=== PATIENT | female | born 1965 | race African-American/Black ===

== ENCOUNTER 2020-08-19 09:30 | Outpatient (RCR) | payer OTHER, SELFPAY ==
--- NOTE | 2020-07-31 13:51 | PTOPEVAL ---
Thank you for referring Phyllis Ferro to [facility].? The patient is scheduled to be seen for therapy? 2 x/week for 6-8 weeks. Please review, sign, date and return this plan of care ERNESTO. I agree with and certify that the following plan of care is medically necessary. Referring Physician Date Attending Provider: Ciaran Osullivan, Referring Provider: Ciaran Osullivan, Physical Therapy Evaluation Diagnosis MS and OA of knee Onset 03/07 Additional Evaluation Detail last exacerbation 12/06 She received 4 months of therapy until June 2019 at [facility] She she then received therapy at [facility] in Jan 2020, she stopped due to a fall. Jan 2019 was the last time she was able to negotiate steps. She received home health until 5 wks ago Current weight 355#. Subjective Information She has a ww, rollator and Query Text:As Reported By Patient/ scooter at home. Family She c/o weakness of left leg that limits her ability to walk or perform daily activities. Her ability to perform daily activities varies with weakness and pain. She reports 3 falls in the past 6 month. When she falls she scoots to the steps and pulls herself up. insulation worker 5hr/day--performs all cleaning, prep cooking and light cooking, assist with ADL's and runs errands. Previous Treatments Previous Treatments For This Problem yes, OP and home health Prior Level of Function Home Setting Home Type House Environmental Barriers Ramp,Railing, Bilateral,Stairs, Greater than 4 Living Situation Alone Support Available Hired Assistance,Physical Assist Available Mobility Assistive Devices (Used Last 3 Walker, Rollator,Walker, Months) Wheeled,Wheelchair, Scooter Pain Assessment Self Report Pain Assessment Knee(s) Reported Pain Level 5 Pain Description Aching,Sharp Pain Frequency Chronic,Continuous Lowest Pain Intensity 3 Greatest Pain Intensity 10 Pain Behaviors Anxious Lower Extremity Range of Motion General Lower Extremi
--- NOTE | 2020-07-31 14:51 | OTOPEVAL ---
OCCUPATIONAL THERAPY EVALUATION REPORT 07/31/20 Thank you for referring Phyllis Ferro [place] [facility] [place] The patient is scheduled to be seen for therapy? 1-2x/week for 2 weeks for 5 visits and the re-evaluation due to patient's insurance only authorizing 6 visits at a time. Please review, sign, date and return this plan of care ERNESTO. I agree with and certify that the following plan of care is medically necessary. Referring Physician Date Admitting Provider: Attending Provider: Ciaran Osullivan, Referring Provider: Ciaran Osullivan, *OT Outpatient Evaluation Start: 07/31/20 13:29 Freq: Status: Active Protocol: Document 07/31/20 13:25 JAYLON (Rec: 07/31/20 14:46 JAYLON [email or web address]) Therapy Assessment Status Assessment Status Assessment Status Evaluation Outpatient Past Medical History Past Medical History Source of Past Medical History Patient,Recalled from Previous Visit, Confirmed with Patient /Family Neurological History Hx Multiple Sclerosis Yes Cardiovascular History Hx Hypertension Yes Genitourinary History Hx Other Genitourinary Disorders Yes: incontinence of bladder Musculoskeletal History Hx Back Pain Yes Hx Other Musculoskeletal Disorders Yes: CTS Endocrine History Hx Other Endocrine Disorders Yes: obesity Psychosocial History Hx Anxiety Yes Hx Depression Yes Pain History Has Past Pain Affected Your Daily Life Yes Evaluation Information Problem Diagnosis MS Onset 02/2019 Subjective Information Patient reports that she was Query Text:As Reported By Patient/ receiving outpatient OT/PT Family Dec-Mar 2020, but stopped due to a fall. She was receiving home health OT/PT Apr-June 2020. States she has a HEP that she does about every other day. Depending on the day she will either use a cane, w/w, rollator, or scooter for her mobility. On a good day she uses a w/w and if she is feeling weak she will use the rollator or scooter. 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 Prior Level of Function Activity Level (Last 3 Months) Hand Dominance Right Activity of Daily Living Ability
--- NOTE | 2020-07-31 14:54 | OTOPEVAL ---
OCCUPATIONAL THERAPY INITIAL EVALUATION REPORT 07/31/20 Thank you for referring Phyllis Ferro to [facility].? The patient is scheduled to be seen for therapy? 2x/week for 6-8 weeks. Please review, sign, date and return this plan of care ERNESTO. I agree with and certify that the following plan of care is medically necessary. Referring Physician Date Admitting Provider: Attending Provider: Ciaran Osullivan, Referring Provider: Ciaran OsullivanMD *OT Outpatient Evaluation Start: 07/31/20 13:29 Freq: Status: Active Protocol: Document 07/31/20 13:25 JAYLON (Rec: 07/31/20 14:46 JAYLON [email or web address]) Therapy Assessment Status Assessment Status Assessment Status Evaluation Outpatient Past Medical History Past Medical History Source of Past Medical History Patient,Recalled from Previous Visit, Confirmed with Patient /Family Neurological History Hx Multiple Sclerosis Yes Cardiovascular History Hx Hypertension Yes Genitourinary History Hx Other Genitourinary Disorders Yes: incontinence of bladder Musculoskeletal History Hx Back Pain Yes Hx Other Musculoskeletal Disorders Yes: CTS Endocrine History Hx Other Endocrine Disorders Yes: obesity Psychosocial History Hx Anxiety Yes Hx Depression Yes Pain History Has Past Pain Affected Your Daily Life Yes Evaluation Information Problem Diagnosis MS Onset 02/2019 Subjective Information Patient reports that she was Query Text:As Reported By Patient/ receiving outpatient OT/PT Family Dec-Mar 2020, but stopped due to a fall. She was receiving home health OT/PT Apr-June 2020. States she has a HEP that she does about every other day. Depending on the day she will either use a cane, w/w, rollator, or scooter for her mobility. On a good day she uses a w/w and if she is feeling weak she will use the rollator or scooter. 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 Prior Level of Function Activity Level (Last 3 Months) Hand Dominance Right Activity of Daily Living Ability Needs Some Help Cooking Yes Fabiola
--- NOTE | 2020-08-08 13:26 | PCOTNOTE ---
Patient called and canceled Occupational Therapy treatment on 08/07 due to being in hospital.
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
--- NOTE | 2020-08-19 09:03 | PCPTNOTE ---
Patient did not show up for scheduled appointment this date. Called and left voicemail reminding Pt of missed appointment and informing her of upcoming appointment on 08/22/20 at 08:00. Will continue per POC.
--- NOTE | 2020-08-22 08:20 | PCPTNOTE ---
Patient called & cancelled scheduled appointment this date due to fell at MD office yesterday and is currently in the hospital. Did not reschedule re-eval this time.
--- NOTE | 2020-09-04 11:23 | PCPTNOTE ---
Admitting Provider: Attending Provider: Ciaran OsullivanMD Patient:Phyllis Ferro Date of :1965 Discharge Note Patient has not returned for any further treatments since 08/12/2020, therefore she will be discharged at this time. Patient?s initial visit was on 07/31/2020 12:30 and she was seen for 1 follow-up visit and 3 cancelled or no show visits. The goals have been not met due to limited attendance of therapy. Thank you for referring this patient to [facility]. Please review, sign, date and return this discharge summary ERNESTO. I have been updated about the patient's current status and I agree with discharge from the above service at this time. Referring Physician Date
--- NOTE | 2020-09-04 11:53 | PCOTNOTE ---
OCCUPATIONAL THERAPY DISCHARGE NOTE 09/04/20 Patient:Phyllis Ferro Date of :1965 Patient has not returned for any further treatments since 08/12/2020, therefore she will be discharged at this time. Patient?s initial visit was on 07/31/2020 12:30 and she was seen for 2 follow-up visits and 3 cancelled or no show visits. The goals have been not met due to limited attendance of therapy. Thank you for referring this patient to [facility]. Please review, sign, date and return this discharge summary ERNESTO. I have been updated about the patient's current status and I agree with discharge from the above service at this time. Referring Physician Date Referring Provider: Ciaran OsullivanMD
== END 2020-09-05 11:52 | disposition home or self-care (01) ==
LOC: ANHOT 09:30
PROVIDERS: PCP Family Medicine; Referring Provider Family Medicine; Visit Provider Family Medicine
DX: M17.0 Bilateral primary osteoarthritis of knee (principal)
CPT/HCPCS: 97110; 97113; 97163; 97166

== ENCOUNTER 2020-12-10 10:28 | Emergency (ER) | payer OTHER, SELFPAY ==
--- NOTE | ~2020-12-10 | US_ITS ---
EXAMINATION: US venous doppler [facility] DATE: 12/10/2020 11:30 INDICATION: Left lower limb pain TECHNIQUE: Grayscale ultrasound images without and with compression and Doppler ultrasound images of the left lower extremity veins were obtained. COMPARISON: None. FINDINGS: The visualized portions of left common femoral vein, profunda (deep) femoral vein, femoral vein, popl iteal vein, peroneal veins, posterior tibial veins, gastrocnemius vein and greater saphenous vein out flow are patent. IMPRESSION: 1. No deep venous thrombosis in the left lower limb. Reviewed, dictated and finalized at location B.
--- NOTE | ~2020-12-10 | XR_ITS ---
EXAMINATION: XR tibia fibula LT 2V EXAM DATE: 12/10/2020 11:13 INDICATION: No known recent injury provided at this time. Pain of the left leg. TECHNIQUE: Left tibia/fibula frontal and lateral projections obtained and reviewed. There is no prio r study for comparison. FINDINGS: Left tibial and fibular shafts unremarkable. There are no acute fractures or dislocations identified. There is no subcutaneous gas. The soft tissue is unremarkable. There are no radiopaqu e foreign bodies. There is moderate left knee, mild ankle primary osteoarthritis. IMPRESSION: Left knee, ankle osteoarthritis. Reviewed, dictated and finalized at location A.
[2020-12-10 10:30] VITALS: BP 135/65; PULSE 59; RESP 16; TEMP 37.3; O2SAT 100
--- NOTE | 2020-12-10 11:04 | ED.EXTPRO ---
HPI - Extremity Problem General Chief complaint: Extremity Problem,Nontraumatic Stated complaint: lower leg infection Time Seen by Provider: 12/10/20 10:30 Source: patient and RN notes reviewed Mode of arrival: EMS Limitations: no limitations History of Present Illness HPI Narrative: This is a 55 year old female with history of MS who presents for evaluation of reassessment of left leg DVT. Patient states she was diagnosed with a left leg DVT at [place] in October so she has been on lovenox. She states she had another US performed yesterday at her long-term because she was having left leg pain during physical therapy. She states she was unable to bear weight to her left lower leg yesterday during physical therapy due to pain. She was having pain to lower anterior leg and posterior leg. Most of her pain was located anteriorly. She denies fever, chills, nauesa, vomiting chest pain or sob. She denies calf pain today. Review of Systems Review of Systems: All systems reviewed & are unremarkable except as noted in HPI and below PMFSH Past Medical History Medical History (Updated 12/10/20 @ 13:52 by Ladonna Guardado MD) DVT (deep venous thrombosis) Hypertension Multiple sclerosis Surgical History Surgical History (Updated 12/10/20 @ 13:50 by Ladonna Guardado MD) H/O gastric bypass H/O inguinal hernia repair Social History Social History (Updated 12/10/20 @ 13:50 by Ladonna Guardado MD) Smoking status: Never smoker Exam Const: General: no acute distress and alert Nutritional Appearance: obese Orientation/consciousness: patient oriented x3 Eyes: EOM: EOMs intact bilaterally Resp: Effort & Inspection: normal respiratory effort and no retractions Auscultation: clear to auscultation bilaterally Cardio: Rate: regular rate Rhythm: regular rhythm Heart sounds: no murmurs Neuro: General: patient oriented x3 Extrem: Other: bilateral leg weakness, negative oswaldo's left leg, no calf tenderness; no erythema, no tenderness or induration Course Reevaluation(s) Reevaluation #1: I reviewed labs with patient and discussed her US was negative for DVt. Date: 12/10/20 Time: 13:51 Vital Signs Vital signs: Vital Signs Temperature 99.2 F 12/10/20 10:30 Pulse Rate 59 L 08/24/21 10:30 Respiratory Rate 16 12/10/20 10:30 Blood Pressure 135/65 12/10/20 10:30 Pulse Oximetry 100 12/10/20 10:30 Temperature 99.2 F 12/10/20 10:30 Pulse Rate 69 12/10/20 17:09 Respiratory Rate 16 12/10/20 17:09 Blood Pressure 122/83 12/10/20 17:09 Pulse Oximetry 96 12/10/20 17:09 MDM - Extremity (Nontraumatic) Lab Data Attestation: I reviewed the patient's lab results. Result diagrams: 12/10/20 13:19 12/10/20 12:55 Labs: Lab Results 12/10/20 12/10/20 12/10/20 Range/Units 12:55 12:55 13:19 WBC 5.8 (4.5-10.0) K/mm3 RBC 4.09 L (4.2-5.4) M/mm3 Hgb 12.3 (12.0-15.0) g/dL Hct 39.2 (37.0-47.0) % MCV 95.8 (80-100) fl MCH 30.1 (26-34) pg MCHC 31.4 L (32-36) g/dl RDW 14.9 H (11.5-14.5) % Plt Count 271 (150-375) k/mm3 MPV 10.9 H (7.4-10.4) fl Immature Gran % (Auto) 0.2 (0-0.5) % Neut % (Auto) 28.9 L (45.5-73.1) % Lymph % (Auto) 53.6 H (18.3-44.2) % Sandoval % (Auto) 9.0 H (2.6-8.5) % Eos % (Auto) 8.0 H (0-4.4) % Baso % (Auto) 0.3 (0.2-1.2) % Lymph # (Auto) 3.09 (0.9-3.2) K/mm3 Sandoval # (Auto) 0.5 (0.1-0.6) K/mm3 Eos # (Auto) 0.5 H (0-0.3) K/mm3 Baso # (Auto) 0.0 (0.0-0.1) K/mm3 Abs Immat Gran (auto) 0.01 (0.00-0.031) K/mm3 Absolute Neuts (auto) 1.7 (1.3-6.7) K/mm3 Absolute Nucleated RBC 0.0 (0.0-0.012) K/mm3 Nucleated RBC % 0.0 (0.0-0.2) % PT 12.7 (11.1-14.7) Seconds INR 1.0 APTT 40.5 H (22.3-36.8) SECONDS Sodium 139 (137-145) mmol/L Potassium 3.7 (3.4-5.0) mmol/L Chloride 106 (98-107) mmol/L Carbon Dioxide
[2020-12-10 13:22] LABS: Alanine Aminotransferase 20 U/L (4-35); Albumin Level 3.7 g/dL (3.5-5.1); Alkaline Phosphatase 99 U/L (38-126); Anion Gap 5 mmol/L (8-16); Aspartate Amino Transferase 28 U/L (14-36); Bilirubin,Total 0.5 mg/dL (0.2-1.3); Blood Urea Nitrogen 8 mg/dL (7-17); Calcium 9.2 mg/dL (8.4-10.2); Carbon Dioxide 28 mmol/L (22-30); Chloride 106 mmol/L (98-107); Estimated CRCL calculation 143 ml/min; Estimated Glomerular Filt Rate > 60; Glucose 93 mg/dL (65-110); Potassium 3.7 mmol/L (3.4-5.0); Sodium 139 mmol/L (137-145)
[2020-12-10 13:24] LABS: Prothrombin Time 12.7 Seconds (11.1-14.7)
[2020-12-10 13:25] LABS: Partial Thromboplastin Time 40.5 SECONDS (22.3-36.8)
[2020-12-10 13:39] LABS: Basophils Percent Auto 0.3 % (0.2-1.2); Eosinophils Absolute Auto 0.5 K/mm3 (0-0.3); Hematocrit 39.2 % (37.0-47.0); Hemoglobin 12.3 g/dL (12.0-15.0); Immature Granulocyte Absolute 0.01 K/mm3 (0.00-0.031); Immature Granulocyte Percent A 0.2 % (0-0.5); Lymphocytes Absolute Auto 3.09 K/mm3 (0.9-3.2); Lymphocytes Percent Auto 53.6 % (18.3-44.2); Mean Corpuscular HGB Conc 31.4 g/dl (32-36); Mean Corpuscular Hemoglobin 30.1 pg (26-34); Mean Corpuscular Volume 95.8 fl (80-100); Mean Platelet Volume 10.9 fl (7.4-10.4); Monocytes Absolute Auto 0.5 K/mm3 (0.1-0.6); Neutrophils Absolute Auto 1.7 K/mm3 (1.3-6.7); Neutrophils Percent Auto 28.9 % (45.5-73.1); Platelet Count Result 271 k/mm3 (150-375); Red Blood Count 4.09 M/mm3 (4.2-5.4); Red Cell Distribution Width 14.9 % (11.5-14.5); White Blood Count 5.8 K/mm3 (4.5-10.0)
--- NOTE | 2020-12-10 14:08 | PC.NURSE ---
[facility] called and given pt report. They stated they dont have transport available today and pt will need to come back by ambulance.
--- NOTE | 2020-12-10 15:21 | PC.NURSE ---
Contacted [facility] that pt does not meet criteria for ambulance transport back to facility. They stated that after their van has 2 patient pickups at another hospital to do and then they can be on their way to pick her up.
[2020-12-10 17:09] VITALS: BP 122/83; PULSE 69; RESP 16; O2SAT 96
== END 2020-12-10 17:09 ==
PROVIDERS: Emergency Provider General Practice; PCP Family Medicine
DX: M17.12 Unilateral primary osteoarthritis, left knee (principal); M79.662 Pain in left lower leg; I10 Essential (primary) hypertension; G35 Multiple sclerosis; Z86.718 Personal history of other venous thrombosis and embolism
CPT/HCPCS: 36415; 73590; 80053; 85025; 85610; 85730; 93971; 99284

== ENCOUNTER 2021-09-02 10:30 | Emergency (ER) | payer OTHER, SELFPAY ==
--- NOTE | ~2021-09-02 | XR_ITS ---
EXAMINATION: XR ankle LT min 3V DATE: 09/02/2021 12:06 INDICATION: Left ankle pain. TECHNIQUE: 4 views of left ankle were obtained. COMPARISON: None. FINDINGS: Bone alignment is normal. No fracture. There is chronic heterotopic ossification distal to medial malleolus from old injury. There is mild midfoot osteoarthritis. There is an enthesophyte at p lantar aspect of calcaneal tuberosity. IMPRESSION: 1. Mild midfoot osteoarthritis. Reviewed, dictated and finalized at location B.
--- NOTE | ~2021-09-02 | XR_ITS ---
EXAMINATION: XR knee LT 3V DATE: 09/02/2021 12:06 INDICATION: Left knee pain. TECHNIQUE: 3 views of left knee were obtained. COMPARISON: None. FINDINGS: Bone alignment is normal. No fracture. There is mild osteoarthritis of medial and lateral c ompartments and severe osteoarthritis of patellofemoral compartment. IMPRESSION: 1. Severe left knee osteoarthritis. Reviewed, dictated and finalized at location B.
[2021-09-02 10:51] VITALS: BP 119/62; PULSE 75; RESP 16; TEMP 35.8; O2SAT 100
[2021-09-02] MEDS: HYDROcodone/acetaminophen (*CRX) 5-325 MG TABLET 1 TAB PO (11:27)
--- NOTE | 2021-09-02 12:02 | PC.NURSE ---
xray in room
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
[2021-09-02 13:29] VITALS: BP 144/88; PULSE 94; RESP 20; TEMP 37.1; O2SAT 96
== END 2021-09-02 13:30 | disposition home or self-care (01) ==
PROVIDERS: Emergency Provider Emergency Medicine; PCP Family Medicine
DX: M25.572 Pain in left ankle and joints of left foot (principal); M25.562 Pain in left knee; I10 Essential (primary) hypertension; G35 Multiple sclerosis; W05.0XXA Fall from non-moving wheelchair, initial encounter
CPT/HCPCS: 73562; 73610; 99284; A9270

== ENCOUNTER 2022-02-05 10:00 | Outpatient (RCR) | payer OTHER, SELFPAY ==
--- NOTE | 2021-12-04 10:10 | OTOPEVAL ---
OCCUPATIONAL THERAPY INITIAL EVALUATION REPORT 12/04/21 Thank you for referring Phyllis Ferro to [facility].? The patient is scheduled to be seen for therapy? 2x/week for 3 weeks. Please review, sign, date and return this plan of care ERNESTO. I agree with and certify that the following plan of care is medically necessary. Referring Physician Date Referring Provider: Ciaran Osullivan, *OT Outpatient Evaluation Start: 12/04/21 09:06 Therapy Assessment Status Assessment Status Assessment Status Evaluation Outpatient Past Medical History Past Medical History Source of Past Medical History Recalled from Previous Visit, Confirmed with Patient/Family Neurological History Hx Multiple Sclerosis Yes Cardiovascular History Hx Hypertension Yes Genitourinary History Hx Other Genitourinary Disorders Yes: incontinence of bladder Musculoskeletal History Hx Back Pain Yes Hx Other Musculoskeletal Disorders Yes: CTS Endocrine History Hx Other Endocrine Disorders Yes: obesity Psychosocial History Hx Anxiety Yes Hx Depression Yes Pain History Has Past Pain Affected Your Daily Life Yes Evaluation Information Problem Diagnosis Multiple Sclerosis Subjective Information Patient reports she would like Query Text:As Reported By Patient/ to get stronger and more Family independent. She states her left side is her weak side. Prior Level of Function Activity Level (Last 3 Months) Hand Dominance Right Activity of Daily Living Ability Needs Some Help Indoor/Home Mobility Independent Community Mobility Dependent Stairs Ability Not-Applicable Cooking No Cleaning No Laundry No Shopping No Driving No Home Setting Home Type House Environmental Barriers Ramp Living Situation Alone Support Available Hired Assistance,Local Family Support,Neighbor/Friend Support [employer] Responsibilities Comment Caregivers 7 days/week for 5.5 hrs/day. Also has a supportive family and a neighbor to help PRN. Toileting Equipment Commode, 3-in-1 Comments Additional Prior Level of Function Pt. sleeps in a hospital bed. Comments She states she is independent with getting herself in/out of bed. She uses a w/w or rollator at home and only uses a w/c when she leaves the
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
--- NOTE | 2022-01-02 10:34 | PTOPPROG ---
Assessment and note entered by Melanie Sethi, PT Evaluation Information Assessment Status Progress Subjective Information Phyllis reports: feel like stronger and walking better; in her home, does not use the w/c, walks with the walker; was able to go out to a wedding this past weekend using her walker; getting out of bed easier, not raising her hospital bed up as high in the back to get out; doing the exercises at home; wants to be able to go up one step, to get into her sisters' home; wants to continue therapy 2x/week to get stronger and walk without any assistive device or a cane; Assessment PT Clinical Summary Phyllis has received 6 PT sessions. She comes to the PT dept in a wheelchair. Compared to the initial evaluation, she has increased walking distance by 20'; slight increase in L leg strength; continues to have labored sit /stand transfer from her w/c. Allen balance score is the same; She reports she is walking in her home and not using the w/c in home. Continue PT to increase strength and mobility skills. Plan of Care Interventions Gait Training,Neuro Re-education,Therapeutic Activities,Therapeutic Exercise PT Services Indicated Yes Treatment Frequency and 2x/wk for 3 weeks Duration These treatments will address the objective and functional deficits as defined above. The patient will be advanced safely and appropriately in order for the patient to progress towards his/her prior level of function. Additional exercises will be introduced and as well as a comprehensive home exercise program upon discharge, if needed, ?to ensure carryover of functional gains achieved in the clinic. This treatment plan has been reviewed and agreement upon by the patient.
--- NOTE | 2022-01-02 11:31 | OTOPPROG ---
Assessment and note entered by Tawanda Tapia, KENNEY/Amor, CHT Evaluation Information Assessment Status Progress Assessment Status Progress Diagnosis MS Subjective Information Patient has been participating in outpatient OT for UE strengthening x3 weeks. She has been compliant with HEPs. She states she feels as though her left arm is a little stronger which has allowed her to be able to put her clothes on better. Assessment OT Clinical Summary Patient referred to outpatient OT with dx of MS. OT progress report completed today. Patient demonstrating improved functional ROM and strength of the left UE at this time. Continued skilled OT indicated for HEP progression, functional therapeutic exercise, and functional coordination exercises to facilitate optimal strength, safety, and independence. Plan of Care Interventions Therapeutic Exercise,Neuro Re-education, Therapeutic Activities,Electrical Stimulation,Self -Care/Home Management OT Services Indicated Yes Treatment Frequency and 2x/week for 3 weeks Duration These treatments will address the objective and functional deficits as defined above. The patient will be advanced safely and appropriately in order for the patient to progress towards his/her prior level of function. Additional exercises will be introduced and as well as a comprehensive home exercise program upon discharge, if needed, ?to ensure carryover of functional gains achieved in the clinic. This treatment plan has been reviewed and agreement upon by the patient.
--- NOTE | 2022-01-06 14:41 | PCPTNOTE ---
Patient called & cancelled scheduled appointment this date due to not having transportation.
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
--- NOTE | 2022-02-05 10:53 | OTOPDC ---
Assessment and note entered by Mary Saravia, OT Evaluation Information Assessment Status Discharge Assessment Status Discharge Diagnosis MS Subjective Information Patient has been participating in outpatient OT for UE strengthening x9 weeks. She has been compliant with HEPs. Patient reports feels UE's has become stronger but fatigues quickly. Reported Pain Level Pain Score 4: Self Report Pain Score 5: Self Report Additional Pain Score Comments pain in both knees: 1-8/10; more pain with cold weather, used wheelchair to come to therapy; reported walking; decrease pain with muscle rubs and green alcohol; Assessment OT Clinical Summary Patient referred to outpatient OT with diagnosis of MS. OT re-evaluation completed today. Patient demonstrating improved functional ROM and strength of the left UE at this time. Patient plans to continue Occupational therapy at a Outpatient clinic that treats MS patients only. Plan is to discharge from skilled OT at this time with patient independent with HEP materials. Plan of Care OT Services Indicated No
--- NOTE | 2022-02-05 11:00 | PTOPDC ---
Assessment and note entered by Melanie Sethi, PT Evaluation Information Assessment Status Discharge Diagnosis OA of R knee Onset September 02, 2021 Subjective Information Phyllis reports: better and stronger, able to walk longer; flare up and worse with MS due to cold weather, continue to walk short distances with the rollator; can walk about 10 min then pain in knees worse--has been using fit bit, trying to get more steps/day; goal to keep improving and getting stronger---want to be able to walk without the walker or cane; want to go back to the gym to do exercises; she is going to continue therapy at a place that does only MS treatments. Reported Pain Level Pain Score Pain Score self reported Additional Pain Score Comments pain in both knees: 1-8/10; more pain with cold weather, used wheelchair to come to therapy; reported walking; decrease pain with muscle rubs and green alcohol; Assessment PT Clinical Summary Phyllis has received 11 PT sessions. Compared to the last reevaluation: pain in R knee is about the same rating; slight increase in strength of legs, but continues to have labored and difficulty with supine/sit and sit/stand transfers; walking distance has increased, but the gait pattern is the same and her pace is slow, 300' in 12 minutes and 52 seconds; She has been educated and has a home exercise program. The goals were partially achieved. Discharge PT services. Phyllis reports she is going to have more therapy at another facility that does only MS patients. Plan of Care PT Services Indicated No
== END 2022-02-05 14:44 | disposition home or self-care (01) ==
LOC: ANHOT 10:00
PROVIDERS: PCP Family Medicine; Referring Provider Family Medicine; Visit Provider Family Medicine
DX: G35 Multiple sclerosis (principal)
CPT/HCPCS: 97014; 97110; 97112; 97116; 97161; 97163; 97165; 97168; 97530; G0283

== ENCOUNTER 2022-06-18 13:40 | Emergency (ER) | payer MEDICARE, MEDICAID, SELFPAY ==
--- NOTE | ~2022-06-18 | US_ITS ---
US arterial ankle brachial ind INDICATION: Left lower extremity pain with loss of hair. TECHNIQUE: Segmental pressures and plethysmographic and Doppler waveforms of the brachial and lower e xtremity arteries were obtained. COMPARISON: None. FINDINGS: Right and left brachial artery pressures of 112 mm Hg and 110 mm Hg, respectively, are concordant (no rmal difference <= 30 mmHg). The right ankle-brachial index (BRANDY) is 0.98 (normal >= 0.9-1.0). The right great toe-brachial index (TBI) is 0.29 (normal >= 0.60). The left BRANDY is 0.79. The left TBI is 0.49. IMPRESSION: 1. Diminished right toe brachial index consistent with moderate peripheral arterial disease below the ankle. 2: Diminished left ankle and toe brachial indices consistent with mild peripheral arterial disease. Reviewed, dictated and finalized at location L. HOUSE ATTENDANT IMPRESSION: 1. Diminished right toe brachial index consistent with moderate peripheral fredy rial disease below the ankle. 2: Diminished left ankle and toe brachial indices consistent with mild peripher al arterial disease.
--- NOTE | ~2022-06-18 | US_ITS ---
EXAMINATION: US venous doppler [facility] DATE: 06/18/2022 15:11 INDICATION: Left lower limb swelling. TECHNIQUE: Grayscale ultrasound images without and with compression and Doppler ultrasound images of the left lower extremity veins were obtained. COMPARISON: Ultrasound 12/10/2020 FINDINGS: The visualized portions of left common femoral vein, profunda (deep) femoral vein, femoral vein, popl iteal vein, peroneal veins, posterior tibial veins, and greater saphenous vein outflow are patent. IMPRESSION: 1. No deep venous thrombosis. Reviewed, dictated and finalized at location A. [employer] BENCH MECH[employer]IC
[2022-06-18 13:50] VITALS: BP 126/80; PULSE 74; RESP 20; O2SAT 98
--- NOTE | 2022-06-18 15:12 | ED.EXTPRO ---
HPI - Extremity Problem General Chief complaint: Extremity Problem,Nontraumatic Stated complaint: r/o dvt per PMD Time Seen by Provider: 06/18/22 14:25 Source: patient and EMS Mode of arrival: EMS Limitations: no limitations History of Present Illness HPI Narrative: Patient is a 56-year-old female with a history of inguinal hernia surgery repair, bilateral lower extremity DVT as a complication secondary to this, not currently anticoagulated, presenting to the emergency department for evaluation of left leg swelling. Patient is ambulatory at baseline, states that her inguinal hernia surgery repair prolonged hospitalization for that admission resulted in bilateral lower extremity DVT in 2020. Patient had been placed on Lovenox twice daily was discontinued last year. Patient states that she has had swelling in the toes in her left foot as well as a left foot that feels cool to the touch. Patient was seen yesterday by her federal appellate law clerk and then recommended to come to this emergency department today after contacting her primary care provider. Patient denies any calf pain, redness. No bruising, lesions or vesicles. Patient denies fall, injury, knee or hip pain. She denies chest pain or shortness of breath. She denies any significant pain in the left lower extremity. Related Data Allergies Allergy/AdvReac Type Severity Reaction Status Date / Time No Known Allergies Allergy Verified 09/02/21 11:26 Review of Systems Review of Systems: CONSTITUTIONAL: Denies fever, chills, or sweats. EYES: Denies visual changes, redness, or discharge. ENT: Denies rhinorrhea, congestion, sore throat, or otalgia. CARDIOVASCULAR: Denies chest pain, palpitations, reports left foot edema RESPIRATORY: Denies cough or dyspnea. GASTROINTESTINAL: Denies abdominal pain, nausea, vomiting, or diarrhea. GENITOURINARY: Denies dysuria or hematuria. SKIN: Denies rash or itching. MUSCULOSKELETAL: Denies back pain, joint pain, or myalgia. NEUROLOGIC: Denies headache, numbness, or weakness. [facility] Past Medical History Medical History DVT (deep venous thrombosis) Hypertension Multiple sclerosis Surgical History Surgical History H/O gastric bypass H/O inguinal hernia repair Social History Social History Smoking status: Never smoker Exam Narrative: GENERAL: Awake, alert, conversant HEAD: Normocephalic, atraumatic. EYES: PERRLA and EOMI. ENT: Nares clear, no rhinorrhea or epistaxis. Mucous membranes moist. NECK: Supple. CHEST: No respiratory distress, breathing even and non labored HEART: Regular rate, sinus rhythm ABDOMEN:Non distended, non tender EXTREMITIES: Normal range of motion. No significant pitting edema. Difficult to palpate DP pulse bilaterally. No erythema, induration, vesicles or lesions. Full range of motion without limitation or pain. No pain with flexion extension at the left ankle, knee. SKIN: Warm, dry, no rash. NEURO:No focal deficits. Alert and oriented x3 Course Vital Signs Vital signs: Vital Signs Pulse Rate 74 06/18/22 13:50 Respiratory Rate 20 06/18/22 13:50 Blood Pressure 126/80 06/18/22 13:50 Pulse Oximetry 98 06/18/22 13:50 Oxygen Delivery Room Air 06/18/22 13:50 Pulse Rate 74 06/18/22 13:50 Respiratory Rate 20 06/18/22 13:50 Blood Pressure 126/80 06/18/22 13:50 Pulse Oximetry 98 06/18/22 13:50 Oxygen Delivery Room Air 06/18/22 13:50 MDM - Extremity (Nontraumatic) MDM Narrative Medical decision making narrative: Medical decision making narrative: -Presentation: Patient presenting for evaluation of left toe edema, not found to have any significant edema or other concerning findings on exam. Both lower extremities are cool to touch, but with normal capillary refill. No mottling. -DDX includes but is not limited to:
[2022-06-18 18:56] VITALS: BP 115/84; PULSE 80; RESP 15; TEMP 36.8; O2SAT 95
== END 2022-06-18 18:58 | disposition home or self-care (01) ==
PROVIDERS: Emergency Provider Emergency Medicine; PCP Family Medicine
DX: R60.0 Localized edema (principal); I73.9 Peripheral vascular disease, unspecified; I10 Essential (primary) hypertension; G35 Multiple sclerosis; Z86.718 Personal history of other venous thrombosis and embolism; Z98.84 Bariatric surgery status
CPT/HCPCS: 93922; 93971; 99284

== ENCOUNTER 2022-08-15 20:53 | Inpatient (IN) | payer MEDICARE, MEDICAID, SELFPAY ==
--- NOTE | ~2022-08-15 | XR_ITS ---
EXAMINATION: XR chest 1V portable DATE: 08/15/2022 21:51 INDICATION: Weakness TECHNIQUE: frontal view of the chest was obtained. COMPARISON: None FINDINGS: Small lung volumes. No focal airspace opacities, pulmonary edema, pleural effusion or pneumothorax. T he cardiomediastinal silhouette is normal. Visualized bones and soft tissues are unremarkable. IMPRESSION: 1. Small lung volumes. No other acute cardiopulmonary disease. Reviewed, dictated and finalized at location A.
--- NOTE | ~2022-08-15 | CT_ITS ---
EXAMINATION: CT brain wo con DATE: 08/15/2022 21:50 INDICATION: Altered mental status. Weakness and dizziness. TECHNIQUE: Computed tomography (CT) of the head was performed without intravenous contrast. Sagittal and coronal reconstructions were performed. The mA was adjusted according to patient size. Iterative reconstruction technique was employed. The dose-length product was 681.00 mGy-cm. COMPARISON: None FINDINGS: Mild streak artifact from small amount of motion on a few of the axial images which only minimally li mits evaluation. No acute intracranial hemorrhage, acute infarction or abnormal extra axial fluid col lection. Ventricles are normal and symmetric with normal variant cavum vergae. No mass/mass effect. T he orbits, paranasal sinuses and mastoid air cells are normal. Small amount of atherosclerotic calcif ic location at the bilateral carotid siphons. IMPRESSION: 1. No acute intracranial process. Reviewed, dictated and finalized at location A.
[2022-08-15 20:54] VITALS: BP 62/50; PULSE 83; RESP 15; TEMP 36.6; O2SAT 100
[2022-08-15 21:04] VITALS: BP 72/43
[2022-08-15 21:05] VITALS: PULSE 78
--- NOTE | 2022-08-15 21:16 | PC.NURSE ---
Patient states that she is tired recently and that and her foot pain is all she has c/o.
--- NOTE | 2022-08-15 21:17 | ECG_ITS ---
Measurements Intervals [place] Rate: 75 P: 33 CA: 178 QRS: -19 QRSD: 106 T: 39 QT: 400 QTc: 447 Interpretive Statements SINUS RHYTHM NONSPECIFIC ST AND T-WAVE ABNORMALITY NO PREVIOUS ECG AVAILABLE FOR COMPARISON Electronically Signed On 08-16-2022 13:40:50 CDT by Rivas Stephens M.D.
[2022-08-15 21:28] LABS: Basophils Percent Auto 0.4 % (0.2-1.2); Eosinophils Absolute Auto 0.1 K/mm3 (0-0.3); Eosinophils Percent Auto 2.2 % (0-4.4); Immature Granulocyte Absolute 0.02 K/mm3 (0.00-0.031); Immature Granulocyte Percent A 0.4 % (0-0.5); Lymphocytes Absolute Auto 1.79 K/mm3 (0.9-3.2); Lymphocytes Percent Auto 32.7 % (18.3-44.2); Mean Corpuscular HGB Conc 32.4 g/dl (32-36); Mean Corpuscular Volume 95.8 fl (80-100); Mean Platelet Volume 10.9 fl (7.4-10.4); Monocytes Absolute Auto 0.4 K/mm3 (0.1-0.6); Monocytes Percent Auto 7.5 % (2.6-8.5); Neutrophils Absolute Auto 3.1 K/mm3 (1.3-6.7); Neutrophils Percent Auto 56.8 % (45.5-73.1); Platelet Count Result 201 k/mm3 (150-375); Red Blood Count 3.55 M/mm3 (4.2-5.4); Red Cell Distribution Width 13.1 % (11.5-14.5); White Blood Count 5.5 K/mm3 (4.5-10.0)
--- NOTE | 2022-08-15 21:35 | ED.WEAKNESS ---
HPI - Weakness General Chief complaint: Weakness Stated complaint: decreased loc Time Seen by Provider: 08/15/22 21:06 History of Present Illness HPI Narrative: Patient is a 56-year-old female with a history of multiple sclerosis presenting with AMS. Patient was reportedly out tonight and had half a glass of wine. She was then picked up by a friend and taken home. Her friend states that the patient then became unresponsive. States that she was slurring her speech which she sometimes does but it was more than normal. States that she has had several of these episodes of unresponsiveness. She has been hospitalized and has had a Holter monitor without any clear explanation. Currently, patient is somnolent but she responds briskly to verbal stimuli. She reports chronic pain in her left foot but she otherwise denies complaints. Related Data Home Medications Medication Instructions Recorded Confirmed acetaminophen 300 mg-codeine 30 mg 1 tablet PO Q6H PRN Pain (Scale 08/16/22 08/16/22 tablet Score 7-10) atorvastatin 10 mg tablet 10 mg PO DAILY 08/16/22 08/16/22 cetirizine 10 mg tablet 10 mg PO DAILY 08/16/22 08/16/22 cyclobenzaprine 10 mg tablet 10 mg PO TID 08/16/22 08/16/22 dalfampridine 10 mg 10 mg PO BID 08/16/22 08/16/22 tablet,extended release,12 hr docusate sodium 100 mg capsule 100 mg PO DAILY 08/16/22 08/16/22 doxepin 10 mg capsule 10 mg PO DAILY 08/16/22 08/16/22 ergocalciferol (vitamin D2) 1,250 1 mcg PO WEEKLY 08/16/22 08/16/22 mcg (50,000 unit) capsule fingolimod 0.5 mg capsule (Gilenya) 0.5 mg PO DAILY 08/16/22 08/16/22 fluticasone propionate 50 1 spray intranasal DAILY 08/16/22 08/16/22 mcg/actuation nasal spray,suspension gabapentin 800 mg tablet 800 mg PO TID 08/16/22 08/16/22 hydrochlorothiazide 25 mg tablet 25 mg PO PRN edema 08/16/22 08/16/22 lisinopril 20 mg tablet 20 mg PO DAILY 08/16/22 08/16/22 oxybutynin chloride 15 mg 15 mg PO DAILY 08/16/22 08/16/22 tablet,extended release 24 hr trazodone 50 mg tablet 50 mg PO HS 08/16/22 08/16/22 Allergies Allergy/AdvReac Type Severity Reaction Status Date / Time No Known Allergies Allergy Verified 09/02/21 11:26 Review of Systems Review of Systems: All systems reviewed & are unremarkable except as noted in HPI and below PMFSH Past Medical History Medical History (Updated 08/16/22 @ 20:54 by Daisha Sierra MD) DVT (deep venous thrombosis) November 2020? History of atrial fibrillation Hyperlipidemia Hypertension Multiple sclerosis PAD (peripheral artery disease) BRANDY June 2022 shows diminished Rt moderate PAD below the ankle and diminished left BRANDY/TBI mild PAD Surgical History Surgical History (Updated 08/16/22 @ 09:55 by Travis Becerril MD) H/O gastric bypass September 2020 complicated by emergent hernia repair a few days later H/O inguinal hernia repair September 2020 Hx of hysterectomy Family History Family History (Updated 08/16/22 @ 09:56 by Travis Becerril MD) Mother Heart disease Sibling Heart disease Social History Social History (Updated 08/16/22 @ 09:58 by Travis Becerril MD) Social History: She is a lifelong nonsmoker. She vapes marijuana twice a week. She drinks occasional glass a wine. She lives alone. She is full code. She nominates her sister Janie to be the individual who would make medical decisions for her if she is unable. Smoking status: Current every day smoker Tobacco type: e-cigarettes/vaping Alcohol intake: current Substance use: current Substance use type: marijuana and opiates Lack of Transportation: No Lack of Food: Never True Current Housing: Decline to Answer Concerned About Future Housing: No Difficulty Paying Gas/Electric Bills: No Difficulty Paying for Meds: No Currently Unemployed: No Education: Master's Degree or Higher Difficulty w/ Childcare or Family Care: No Spiritual care concerns: No Exam Narrative: GENERAL: Somnolent, awakens bris
[2022-08-15] MEDS: SODIUM CHLORIDE 0.9% IV 1,000 ML 999 ML IV CONT (21:38)
[2022-08-15 22:30] VITALS: BP 94/62; PULSE 67; RESP 13; O2SAT 100
[2022-08-15 22:56] LABS: Partial Thromboplastin Time 32.2 SECONDS (22.3-36.8)
[2022-08-15 23:00] LABS: Lactic Acid Reflex 2.1 mmol/L (0.7-2.0)
[2022-08-15 23:01] LABS: Lipase 330 U/L (23-300); Magnesium 2.2 mg/dL (1.6-2.3)
[2022-08-15 23:02] LABS: Ethanol < 10 mg/dL (<10)
[2022-08-15 23:05] LABS: Alanine Aminotransferase 17 U/L (6-35); Albumin Level 3.7 g/dL (3.5-5.1); Alkaline Phosphatase 106 U/L (38-126); Anion Gap 8 mmol/L (8-16); Aspartate Amino Transferase 21 U/L (14-36); Bilirubin,Total 0.4 mg/dL (0.2-1.3); Blood Urea Nitrogen 29 mg/dL (7-17); Calcium 8.6 mg/dL (8.4-10.2); Carbon Dioxide 23 mmol/L (22-30); Chloride 107 mmol/L (98-107); Estimated CRCL calculation 80 ml/min; Estimated Glomerular Filt Rate > 60; Glucose 110 mg/dL (65-110); Potassium 3.4 mmol/L (3.4-5.0); Sodium 138 mmol/L (137-145)
[2022-08-15 23:14] LABS: Troponin I < 0.012 ng/mL (0.000-0.034)
[2022-08-16] VITALS (12 sets, daily range): BP systolic 91–113; BP diastolic 56–78; PULSE 58–87; RESP 14–22; TEMP 36.1–36.5; O2SAT 92–100; BMI 37.5
[2022-08-16] MEDS: SODIUM CHLORIDE 0.9% IV 1,000 ML 999 ML IV CONT ×2 (00:03→01:10)
[2022-08-16 00:24] LABS: Appearance Urine Cloudy (Clear); Bacteria Urine 4+ /hpf; Bilirubin Urine Negative (Negative); Blood Urine Negative (Negative); Color Urine Yellow (Yellow); Glucose Urine UA Negative (Negative); Ketones Urine Negative (Negative); Leukocyte Esterase Ur Trace LEU/UL (Negative); Need Manual Microscopic Reviewed; Nitrate Urine Positive (Negative); Protein Urine Negative (Negative); RBC Urine 51-100 /hpf (0-2); Specific Grav Ur 1.019 (1.001-1.035); Squamous Epithelial Cell Urine Few /hpf (Few)
[2022-08-16 00:31] LABS: Add Urine Microscopic? YES
[2022-08-16 01:42] LABS: Reflex Lactic Acid Yes or No Add Lactic
[2022-08-16 01:48] LABS: Amphetamine Screen Urine Negative (Negative); Barbiturate Screen Urine Negative (Negative); Benzodiazepines Screen Urine Negative (Negative); Cannabinoid Screen Urine Positive (Negative); Cocaine Screen Urine Negative (Negative); Methadone Screen Urine Negative (Negative); Opiate Screen Urine Positive (Negative); Phencyclidine Screen Urine Negative (Negative)
--- NOTE | 2022-08-16 03:42 | PC.NURSE ---
This patient, Phyllis Ferro, was admitted to [facility] Room 320-01. Patient/family oriented to hospital policies and general routines including ID bracelet, bed and alarms, visiting hours, pain management, procedures, bathroom and other care routines, personal items, smoking policy, room service/diet, and visiting hours. Information on how to activate the Rapid Response Team has been discussed. Patient/Family are encouraged to report perceived risks to care and to ask questions if they do not understand what they are told or what they should do.
[2022-08-16 08:55] LABS: Troponin I < 0.012 ng/mL (0.000-0.034)
--- NOTE | 2022-08-16 09:19 | PM.IMHP ---
H&P: HPI History of Present Illness Date/Time: 08/16/22 09:19 Chief Complaint: Syncope; 'I passed out' Narrative: 56yo female with hx of DVT, HTN and MS here for syncope. Patient has had MS diagnosed in February 2020 and is followed by Dr Gutierrez at [facility]. She has chronic vision changes including diplopia intermittently. Also with chronic leg arm/leg weakness with right UE tingling. She is currently on fingolimod. She walks with a walker/Rolator and PT 1-2x/week as outpatient. She recently developed left foot pain and saw her volunteer recruiter on Wednesday (08/10). Xray negative for fracture. She received an injection and started of Acet/codeine (T#3). She does not sleep well and does take a 'sleeping medication' and also Vapes marijuana. She was sitting with friends when she had sudden onset of syncope. No CP, lightheadeness, SOB or palpitations prior to the event. She was sitting. No hx of seizure or CVA. No seizure like activity. No tongue biting or incontinence. Was not confused after the event but was 'sleepy'. She has no memory of the event. She had 1/2 a glass of wine. She has had 2 other episodes similar to this except the prior episodes had an 'aura' described as 'a hot sensation'. The first time was Mar 2020 on the same day as her brother had . The 2nd episode was june 2021. She has a hx of AFib in September 2020 when she was critically ill. She was on anticoagulation after that hospitalization. Some time later (Jan 2021?), she had a 30 day holter monitor that did not show any cardiac rhythm concerns. She denies fevers, chills, hearing changes, odynophagia, dysphagia, nausea, vomiting, chest pain, palpitations, SOB, cough, diarrhea, constipation, dyuria, hematuria, abdominal pain or back pain. EMS was called and patient was brought to the ED for evaluation (No EMS record to review). In the ED, she was hypotensive with BP 62/50. Notes state patient had slurred speech and was somnolent in the ED. Head CT showing no acute findings. EKG showing normal sinus rhythm with nonspecific T wave changes. QTc 447. CBC was normal. CMP normal except for BUN 29 and Cr 1.0. Troponin negative x2. Lipase 330. lactic acid 2.1 but normal on repeat. UDS positive for opiates and cannabinoids. UA was concerned for UTI. She was given 2L on NS. She was given Rocephin. She was admitted for further care. Review of Systems Review of Systems: All systems reviewed & are unremarkable except as noted in HPI and below PMFSH Past Medical History Medical History (Updated 08/16/22 @ 10:24 by Travis Becerril MD) DVT (deep venous thrombosis) November 2020? History of atrial fibrillation Hyperlipidemia Hypertension Multiple sclerosis PAD (peripheral artery disease) BRANDY June 2022 shows diminished Rt moderate PAD below the ankle and diminished left BRANDY/TBI mild PAD Surgical History Surgical History (Updated 08/16/22 @ 09:55 by Travis Becerril MD) H/O gastric bypass September 2020 complicated by emergent hernia repair a few days later H/O inguinal hernia repair September 2020 Hx of hysterectomy Family History Family History (Updated 08/16/22 @ 09:56 by Travis Becerril MD) Mother Heart disease Sibling Heart disease Social History Social History (Updated 08/16/22 @ 09:58 by Travis Becerril MD) Social History: She is a lifelong nonsmoker. She vapes marijuana twice a week. She drinks occasional glass a wine. She lives alone. She is full code. She nominates her sister Janie to be the individual who would make medical decisions for her if she is unable. Smoking status: Current every day smoker Tobacco type: e-cigarettes/vaping Alcohol intake: current Substance use: current Substance use type: marijuana and opiates Lack of Transportation: No Lack of Food: Never True Current Housing: Decline to Answer Concerned About Future Housing: No Difficulty Paying Gas/Electric Bills: No Difficulty Paying for Meds: No Currently Unemployed: No Educatio
--- NOTE | 2022-08-16 10:16 | PC.NURSE ---
Pt's sister, Janie, called wanting an update. Janie informed me of pt's history including but not limited to previous similar episodes of syncopal like occurrences two of which required administration of CPR. Each time pt was determined to have been in Afib however pt eventually came out of Afib and that is not normal for her according to Janie. 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
--- NOTE | 2022-08-16 11:28 | PC.NURSE ---
Meds received from pharmacy at 11:30 08/16/22
[2022-08-16] MEDS: SODIUM CHLORIDE 0.9% IV 1,000 ML 70 ML IV CONT (11:36)
[2022-08-16] MEDS: ATORVASTATIN 10 MG TABLET PO (11:37)
[2022-08-16] MEDS: FLUTICASONE PROPIONATE 0.05% NA SPR 16 GM BTL (*BKC) 1 SPRAY NASAL (11:37)
[2022-08-16] MEDS: DOCUSATE SODIUM 100 MG CAPSULE PO (11:37)
[2022-08-16] MEDS: GABAPENTIN 400 MG CAPSULE 800 MG PO ×2 (11:37→17:05)
[2022-08-16] MEDS: oxyBUTYnin CHLORIDE XL 5 MG TAB.ER.24 15 MG PO (11:38)
[2022-08-16] MEDS: ENOXAPARIN 40 MG/0.4 ML SYRINGE SUB-Q (11:39)
--- NOTE | 2022-08-16 19:54 | PC.NURSE ---
pt and family requesting to see tele stripes, informed clinic charge nurseKathleen Boucher spoke with pt and family on process of obtaining medical records.
--- NOTE | 2022-08-16 20:06 | PC.NURSE ---
home meds sent to pharmacy for verification
[2022-08-16] MEDS: traZODone HCL 50 MG TABLET PO (20:39)
--- NOTE | 2022-08-16 21:27 | PC.NURSE ---
clarified with pt dalfampridine times, communication note placed to pharmacy.
--- NOTE | 2022-08-16 21:29 | PHAR ---
DRUG NAME: URBAN INGREDIENTS: FINGOLIMOD HYDROCHLORIDE -- 0.5 MG COLOR: WHITE [place] , BRIGHT YELLOW SHAPE: CAPSULE-SHAPE IMPRINT: FTY 0.5MG ; BANDS IMPRINT CODE DESCRIPTION: IMPRINTED FTY 0.5MG ON THE CAP AND TWO RADIAL BANDS ON THE BODY IN YELLOW INK. FORM: ORAL CAPSULE DRUG NAME: DALFAMPRIDINE INGREDIENTS: DALFAMPRIDINE -- 10 MG COLOR: WHITE TO OFF-WHITE SHAPE: OVAL IMPRINT: C51 IMPRINT CODE DESCRIPTION: THE TABLET IS DEBOSSED WITH C51 ON ONE SIDE AND PLAIN ON THE OTHER SIDE. FORM: ORAL TABLET, EXTENDED RELEASE
[2022-08-17] VITALS (11 sets, daily range): BP systolic 99–130; BP diastolic 56–95; PULSE 64–770; RESP 16; TEMP 36.3–36.6; O2SAT 99–100
[2022-08-17] MEDS: SODIUM CHLORIDE 0.9% IV 1,000 ML 70 ML IV CONT (01:10)
[2022-08-17 06:37] LABS: Eosinophils Absolute Auto 0.1 K/mm3 (0-0.3); Eosinophils Percent Auto 4.8 % (0-4.4); Hematocrit 29.7 % (37.0-47.0); Hemoglobin 9.5 g/dL (12.0-15.0); Immature Granulocyte Absolute 0.01 K/mm3 (0.00-0.031); Immature Granulocyte Percent A 0.4 % (0-0.5); Lymphocytes Absolute Auto 0.54 K/mm3 (0.9-3.2); Lymphocytes Percent Auto 21.4 % (18.3-44.2); Mean Corpuscular Hemoglobin 31.1 pg (26-34); Mean Corpuscular Volume 97.4 fl (80-100); Mean Platelet Volume 10.8 fl (7.4-10.4); Monocytes Absolute Auto 0.4 K/mm3 (0.1-0.6); Monocytes Percent Auto 17.1 % (2.6-8.5); Neutrophils Absolute Auto 1.4 K/mm3 (1.3-6.7); Neutrophils Percent Auto 56.3 % (45.5-73.1); Platelet Count Result 175 k/mm3 (150-375); Red Blood Count 3.05 M/mm3 (4.2-5.4); Red Cell Distribution Width 13.2 % (11.5-14.5); White Blood Count 2.5 K/mm3 (4.5-10.0)
[2022-08-17 07:01] LABS: Alanine Aminotransferase 16 U/L (6-35); Albumin Level 3.1 g/dL (3.5-5.1); Alkaline Phosphatase 85 U/L (38-126); Anion Gap 3 mmol/L (8-16); Aspartate Amino Transferase 18 U/L (14-36); Bilirubin,Total 0.4 mg/dL (0.2-1.3); Blood Urea Nitrogen 17 mg/dL (7-17); Calcium 8.2 mg/dL (8.4-10.2); Carbon Dioxide 24 mmol/L (22-30); Chloride 112 mmol/L (98-107); Estimated CRCL calculation 114 ml/min; Estimated Glomerular Filt Rate > 60; Glucose 116 mg/dL (65-110); Magnesium 2.1 mg/dL (1.6-2.3); Phosphorus 2.9 mg/dL (2.5-4.5); Potassium 3.3 mmol/L (3.4-5.0); Sodium 139 mmol/L (137-145)
[2022-08-17] MEDS: GABAPENTIN 400 MG CAPSULE 800 MG PO ×3 (08:00→17:08)
[2022-08-17] MEDS: FLUTICASONE PROPIONATE 0.05% NA SPR 16 GM BTL (*BKC) 1 SPRAY NASAL (08:02)
[2022-08-17] MEDS: POTASSIUM CHLORIDE 20 MEQ TABLET 40 MEQ PO (08:03)
[2022-08-17] MEDS: DOCUSATE SODIUM 100 MG CAPSULE PO (08:03)
[2022-08-17] MEDS: ATORVASTATIN 10 MG TABLET PO (08:03)
[2022-08-17] MEDS: ENOXAPARIN 40 MG/0.4 ML SYRINGE SUB-Q (08:03)
[2022-08-17] MEDS: oxyBUTYnin CHLORIDE XL 5 MG TAB.ER.24 15 MG PO (08:03)
--- NOTE | 2022-08-17 12:16 | WPDNEURCNPN ---
Assessment and Plan Assessment and plan (1) Syncope: Qualifiers: Encounter type: initial encounter Code(s): R55 - Syncope and collapse Status: Acute (2) Multiple sclerosis: Code(s): G35 - Multiple sclerosis Status: Acute Plan One syncope and collapse rule out the possibility of sick sinus syndrome, partial or partial complex seizure with secondary generalization plan is to obtain the EEG and cardiac evaluation Consult date: 08/17/22 HPI: Phyllis Ferro is a 56 year old female Admitted to the hospital through the emergency room with ongoing history of multiple sclerosis but with acute mental status changes. Reportedly she was out at night and had half a glass of wine then she was picked up by a friend and taken home but reportedly then she became unresponsive with slurred speech and having had several of these episodes of unresponsiveness in the past as well when she has gone through evaluation particularly Holter monitoring of the heart at the time of initial evaluation in the emergency room she was somnolent but was responding to the verbal stimuli, her medications included cyclobenzaprine 10 mg t.i.d. doxepin 10 mg daily fingolimod 0.5 mg daily gabapentin 800 mg 3 times a day trazodone 50 mg at night, she is not allergic to any medication past history is particularly important for the history of DVT in November of 2020 atrial fibrillation, hypertension, and peripheral arterial disease, with history of multiple sclerosis patient has also undergone gastric bypass she is currently everyday smoker currently drinking alcohol with use of Janie Van and opiates exam in the emergency room only slurred speech and oriented x2 but blood pressure of 62/50 though afebrile CBC in a BMP with BUN 29 UA negative screen for opiate positive alcohol level less than 10 urine was also positive for cannabinoids, CT scan of the head was negative chest x-ray negative. She has had 2 other episodes similar to this with a history of prior episode having and or a like hot sensation when she has had the 30 day Holter monitoring which was negative. [facility] Past Medical History Medical History (Updated 08/17/22 @ 12:26 by Randy Lawrence MD) DVT (deep venous thrombosis) November 2020? History of atrial fibrillation Hyperlipidemia Hypertension Multiple sclerosis PAD (peripheral artery disease) BRANDY June 2022 shows diminished Rt moderate PAD below the ankle and diminished left BRANDY/TBI mild PAD Surgical History Surgical History (Updated 08/16/22 @ 09:55 by Travis Becerril MD) H/O gastric bypass September 2020 complicated by emergent hernia repair a few days later H/O inguinal hernia repair September 2020 Hx of hysterectomy Family History Family History (Updated 08/16/22 @ 09:56 by Travis Becerril MD) Mother Heart disease Sibling Heart disease Social History Social History (Updated 08/16/22 @ 09:58 by Travis Becerril MD) Social History: She is a lifelong nonsmoker. She vapes marijuana twice a week. She drinks occasional glass a wine. She lives alone. She is full code. She nominates her sister Janie to be the individual who would make medical decisions for her if she is unable. Smoking status: Current every day smoker Tobacco type: e-cigarettes/vaping Alcohol intake: current Substance use: current Substance use type: marijuana and opiates Lack of Transportation: No Lack of Food: Never True Current Housing: Decline to Answer Concerned About Future Housing: No Difficulty Paying Gas/Electric Bills: No Difficulty Paying for Meds: No Currently Unemployed: No Education: Master's Degree or Higher Difficulty w/ Childcare or Family Care: No Spiritual care concerns: No Meds Home Medications and Allergies Home Medications Medication Instructions Recorded Confirmed Type acetaminophen 300 mg-codeine 30 mg 1 tablet PO Q6H PRN Pain (Scale 08/16/22 08/16/22 History tablet Score 7-10)
--- NOTE | 2022-08-17 13:27 | PM.IMPN ---
Progress Note: A&P Assessment and Plan (1) Syncope: Qualifiers: Encounter type: initial encounter Code(s): R55 - Syncope and collapse Status: Acute Assessment and Plan: EMS notes are not available so unclear if she was hypotensive in the field. Blood pressure was 62/50 on admission. She was fluid responsive. She is on scheduled lisinopril and PRN hydrochlorothiazide. HoTN probably causing the mental status changes and syncope. Consider sepsis from UTI. Contributing factors includes hypersomnolence related to alcohol, Flexeril, marijuana and codeine combination. Consider seizures or neurologic changes from her MS. Dalfampridine can cause seizures. Consider also medications such as fingolimod which can cause bradycardia, AV salomon blockade but seems less likely. BP better controlled. Will stop IV fluids. Continue telemetry. (2) Hypotension: Code(s): I95.9 - Hypotension, unspecified Status: Acute Assessment and Plan: As above (3) UTI (urinary tract infection): Code(s): N39.0 - Urinary tract infection, site not specified Status: Acute Assessment and Plan: UA noted. She is at risk for UTIs with dalfampridine. UCx growing EColi. BCx pending. Continue Rocephin. Follow up on culture results (4) Dehydration: Code(s): E86.0 - Dehydration Status: Acute Assessment and Plan: BUN and Cr above baseline. Could be dehydration causing the HoTN with the UTI and HCTZ. Repeat labs showing improvement. Stop IV fluids (5) Multiple sclerosis: Code(s): G35 - Multiple sclerosis Status: Acute Assessment and Plan: Patient being followed by [facility] for her MS. She is on fingolimod chronically. PML is a rare complication with this medications. CT brain normal. Neuro consulted and appreciate their input. Plan DVT prophylaxis - Lovenox Code status - full Subjective Date/time seen: 08/17/22 13:27 Interval history: 56yo female with hx of DVT, HTN and MS here for syncope.? Eating well. Slept off and on but this is not uncommon for her. She feels well. She admits to having low BP at home (80/60) but willis climb to 150/90 if off anti-HTN. She has not taken the HCTZ recently. Exam Narrative: AF 97.0 101/74 73 14 92% ra Gen - NARD Chest - CTA bilaterally, nml RR CV - RRR S1/S2. Tele showing no significant dysrhythmias Abd - soft, NT/ND, +BS Ext - no pedal edema. Psych - normal mood and affect. Skin - warm and dry. Objective Data Vital Signs Vital Signs: Vital Signs - 24 hr 08/16/22 14:00 08/16/22 16:00 08/16/22 20:00 Temperature 97.4 F L Pulse Rate 58 L 71 76 Respiratory Rate 14 Blood Pressure 98/74 L Pulse Oximetry 95 Oxygen Delivery 08/16/22 21:37 08/17/22 00:00 08/17/22 04:00 Temperature 97.7 F Pulse Rate 81 70 64 Respiratory Rate 18 Blood Pressure 97/76 L Pulse Oximetry 98 Oxygen Delivery 08/17/22 05:45 08/17/22 08:00 08/17/22 08:00 Temperature 97.4 F L Pulse Rate 76 72 Respiratory Rate 16 Blood Pressure 99/56 L Pulse Oximetry 99 Oxygen Delivery Room Air 08/17/22 10:06 08/17/22 11:19 08/17/22 12:00 Temperature Pulse Rate 68 770 H Respiratory Rate Blood Pressure Pulse Oximetry 99 Oxygen Delivery Room Air Room Air Intake/Output Intake/Output: Intake & Output 08/14/22 08/15/22 08/16/22 08/17/22 23:59 23:59 23:59 23:59 Intake Total 1000 1762 1440 Balance 1000 1762 1440 Meds/Results Medications: Active Medications Generic Name Dose Route Start Last Admin Trade Name Freq PRN Reason Stop Dose Admin Atorvastatin Calcium 10 mg 08/16/22 10:35 08/17/22 08:03 Atorvastatin 10 Mg Tablet PO 10 mg DAILY SHELLY Administration Docusate Sodium 100 mg 08/16/22 10:40 08/17/22 08:03 Docusate Sodium 100 Mg Capsule PO 100 mg DAILY SHELLY Administration Enoxaparin Sodium 40 mg 08/16/22 10:35 08/17
[2022-08-17] MEDS: traZODone HCL 50 MG TABLET PO (21:23)
[2022-08-18] VITALS (8 sets, daily range): BP systolic 102–139; BP diastolic 69–86; PULSE 68–92; RESP 16–18; TEMP 36.4–36.6; O2SAT 99–100
[2022-08-18 06:18] LABS: Basophils Percent Auto 0.4 % (0.2-1.2); Eosinophils Absolute Auto 0.2 K/mm3 (0-0.3); Eosinophils Percent Auto 6.3 % (0-4.4); Hematocrit 30.1 % (37.0-47.0); Hemoglobin 9.6 g/dL (12.0-15.0); Lymphocytes Absolute Auto 0.67 K/mm3 (0.9-3.2); Lymphocytes Percent Auto 26.2 % (18.3-44.2); Mean Corpuscular HGB Conc 31.9 g/dl (32-36); Mean Corpuscular Hemoglobin 31.1 pg (26-34); Mean Corpuscular Volume 97.4 fl (80-100); Mean Platelet Volume 10.7 fl (7.4-10.4); Monocytes Absolute Auto 0.5 K/mm3 (0.1-0.6); Monocytes Percent Auto 18.8 % (2.6-8.5); Neutrophils Absolute Auto 1.2 K/mm3 (1.3-6.7); Neutrophils Percent Auto 48.3 % (45.5-73.1); Platelet Count Result 160 k/mm3 (150-375); Red Blood Count 3.09 M/mm3 (4.2-5.4); Red Cell Distribution Width 13.4 % (11.5-14.5); White Blood Count 2.6 K/mm3 (4.5-10.0)
[2022-08-18 06:31] LABS: Anion Gap 3 mmol/L (8-16); Blood Urea Nitrogen 17 mg/dL (7-17); Calcium 8.1 mg/dL (8.4-10.2); Carbon Dioxide 26 mmol/L (22-30); Chloride 111 mmol/L (98-107); Estimated CRCL calculation 114 ml/min; Estimated Glomerular Filt Rate > 60; Glucose 90 mg/dL (65-110); Magnesium 2.1 mg/dL (1.6-2.3); Phosphorus 3.1 mg/dL (2.5-4.5); Potassium 3.7 mmol/L (3.4-5.0); Sodium 140 mmol/L (137-145)
[2022-08-18 06:40] LABS: Iron 69 ug/dL (37-170)
[2022-08-18 06:49] LABS: Percent Iron Saturation 31 % (20-50)
[2022-08-18 07:37] LABS: Folic Acid 16.3 ng/mL (2.76->20); Vitamin B12 > 1000.0 pg/mL (239-931)
[2022-08-18] MEDS: DOCUSATE SODIUM 100 MG CAPSULE PO (08:19)
[2022-08-18] MEDS: ATORVASTATIN 10 MG TABLET PO (08:19)
[2022-08-18] MEDS: oxyBUTYnin CHLORIDE XL 5 MG TAB.ER.24 15 MG PO (08:20)
[2022-08-18] MEDS: GABAPENTIN 400 MG CAPSULE 800 MG PO ×2 (08:20→13:13)
[2022-08-18] MEDS: FLUTICASONE PROPIONATE 0.05% NA SPR 16 GM BTL (*BKC) 1 SPRAY NASAL (08:20)
[2022-08-18] MEDS: ENOXAPARIN 40 MG/0.4 ML SYRINGE SUB-Q (08:22)
--- NOTE | 2022-08-18 11:53 | WPDNEUROPN ---
Subjective Date/time seen: 08/18/22 11:53 Interval history: 56 years old with history of underlying demyelinating disease and residual neurological deficit particularly chronic visual changes with intermittent disconjugate gaze resulting in diplopia and chronic upper and lower extremity weakness and sensory deficit, routine lab documented the leukopenia with anemia and UA positive for cannabinoi, x-ray chest negative and CT head negative Doppler study also negative without evidence of deep venous thrombosis, urine culture is positive for the E coli and patient is being treated. On today's exam much more awake coherent and following instructions very will review the EEG Objective Data Vital Signs Vital Signs: Vital Signs - 24 hr 08/17/22 12:00 08/17/22 14:00 08/17/22 16:00 Temperature 36.5 C Pulse Rate 770 H 72 80 Respiratory Rate 16 Blood Pressure 122/95 H Pulse Oximetry 100 Oxygen Delivery 08/17/22 22:00 08/17/22 20:00 08/18/22 00:00 Temperature 36.6 C Pulse Rate 69 77 74 Respiratory Rate 16 Blood Pressure 120/68 Pulse Oximetry 100 Oxygen Delivery 08/18/22 04:00 08/18/22 06:00 08/18/22 08:00 Temperature 36.4 C Pulse Rate 81 72 Respiratory Rate 16 Blood Pressure 111/75 Pulse Oximetry 99 99 Oxygen Delivery Room Air 08/18/22 08:00 Temperature Pulse Rate 75 Respiratory Rate Blood Pressure Pulse Oximetry Oxygen Delivery Intake/Output Intake/Output: Intake & Output 08/15/22 08/16/22 08/17/22 08/18/22 23:59 23:59 23:59 23:59 Intake Total 1000 1762 3420 340 Output Total 400 Balance 1000 1762 3020 340 Meds/Results Medications: Active Medications Generic Name Dose Route Start Last Admin Trade Name Freq PRN Reason Stop Dose Admin Atorvastatin Calcium 10 mg 08/16/22 10:35 08/18/22 08:19 Atorvastatin 10 Mg Tablet PO 10 mg DAILY SHELLY Administration Docusate Sodium 100 mg 08/16/22 10:40 08/18/22 08:19 Docusate Sodium 100 Mg Capsule PO 100 mg DAILY SHELLY Administration Enoxaparin Sodium 40 mg 08/16/22 10:35 08/18/22 08:22 Enoxaparin 40 Mg/0.4 Ml Syringe SUB-Q 40 mg DAILY SHELLY Administration Fluticasone Propionate 1 spray 08/16/22 10:40 08/18/22 08:20 Fluticasone Propionate 0.05% Na Spr 16 Gm Btl (*Bkc) NASAL 1 spray DAILY SHELLY Administration Gabapentin 800 mg 08/16/22 13:00 08/18/22 08:20 Gabapentin 400 Mg Capsule PO 800 mg TID SHELLY Administration Ceftriaxone Sodium 1 gm in 50 mls @ 100 mls/hr 08/16/22 21:00 08/17/22 21:26 Rocephin 1 Gm/Ns 50 Ml IVPB 100 mls/hr HS SHELLY Administration (Fingolimod [Gilenya 0.5 mg 08/17/22 18:00 08/17/22 17:09 ] 0.5 Mg Capsule) * PO 09/15/22 21:29 0.5 mg Home Supply DAILY@1800 SHELLY Administration (Dalfampridine 10 Mg 0 mg 08/17/22 21:00 08/18/22 08:21 Tablet Extended PO 09/15/22 21:34 10 mg Release 12 Hr) *Home Q12HR SHELLY Administration Supply Oxybutynin Chloride 15 mg 08/16/22 10:40 08/18/22 08:20 Oxybutynin Chloride Xl 5 Mg Tab.Er.24 PO 15 mg DAILY SHELLY Administration Trazodone HCl 50 mg 08/16/22 21:00 08/17/22 21:23 Trazodone Hcl 50 Mg Tablet PO 50 mg HS SHELLY Administration Radiology Results: ITS Impressions Head CT 08/15/22 22:00 IMPRESSION: 1. No acute intracranial process. Chest X-Ray 08/16/22 09:49 IMPRESSION: 1. Small lung volumes. No other acute cardiopulmonary disease. Labs Labs: Laboratory Results - last 24 hr 08/18/22 06:01 WBC 2.6 L RBC 3.09 L Hgb 9.6 L Hct 30.1 L MCV 97.4 MCH 31.1 MCHC 31.9 L RDW 13.4 Plt Count 160 MPV 10.7 H Immature Gran % (Auto) 0.0 Neut % (Auto) 48.3 Lymph % (Auto) 26.2 [place] % (Auto) 18.8 H Eos % (Auto) 6.3 H Baso % (Auto) 0.4 Lymph # (Auto) 0.67 L [place] # (Auto) 0.5 Eos # (Auto) 0.2 Baso # (Auto) 0.0 Abs Immat Gran (auto) 0.00 Absolute Neuts (auto) 1.2 L Absolute Nucleated RBC 0.0 Nucleated RBC % 0.0 Sodium
--- NOTE | 2022-08-18 15:06 | PM.DS ---
DS: Admitting Diagnosis Discharge Date 08/18/22 Admitting Diagnosis Syncope DS: Discharge Diagnosis Discharge Diagnosis (1) Syncope: Qualifiers: Encounter type: initial encounter Code(s): R55 - Syncope and collapse Status: Acute (2) Hypotension: Code(s): I95.9 - Hypotension, unspecified Status: Acute (3) UTI (urinary tract infection): Code(s): N39.0 - Urinary tract infection, site not specified Status: Acute (4) Dehydration: Code(s): E86.0 - Dehydration Status: Acute (5) Multiple sclerosis: Code(s): G35 - Multiple sclerosis Status: Acute DS: Summary Hospital Course Reason for hospitalization: 56yo female with MS here for syncopal episode and found to have hypotension. Please see H&P for details. Hospital Course: EMS notes are not available so unclear if she was hypotensive in the field.? Blood pressure was 62/50 on admission.? She was fluid responsive.? She is on scheduled lisinopril and PRN hydrochlorothiazide.? HoTN probably causing the mental status changes and syncope. Sepsis from UTI felt less likely. Contributing factors includes hypersomnolence related to alcohol, Flexeril, marijuana and codeine combination.? Consider seizures or neurologic changes from her MS. Dalfampridine can cause seizures. Consider also medications such as fingolimod which can cause bradycardia, AV salomon blockade but seems less likely and no significant dysrhythmias by telemetry. She has low blood pressure often. Blood pressure improved off anti-HTN medications. She was able to come off the IV fluids. Blood pressure remained stable. UA noted. She is at risk for UTIs with dalfampridine. UCx growing EColi. BCx NGTD. She was treated with Rocephin. Patient being followed by [facility] for her MS. She is on fingolimod chronically. PML is a rare complication with this medications. CT brain normal. Neuro consulted and EEG completed but results pending. Discussed with neurology. Okay for discharge. Patient to follow up with her doctors. She overall did well and was able to be discharged home on 08/18/22. Status at Discharge Cognitive/behavioral status at discharge: Stable Time Spent with Patient Time attestation: Total time spent providing and/or coordinating discharge services: 35 minutes Time spent: Greater than 30 minutes Exam Narrative: AF 97.9 102/69 78 18 100% ra Gen - NARD Chest - CTA bilaterally, nml RR CV - RRR S1/S2. Tele showing no significant dysrhythmias Abd - soft, NT/ND, +BS Ext - no pedal edema. Psych - normal mood and affect. Skin - warm and dry. DS: Data Data Completed and Pending Labs on day of discharge: Labs from last 24 hours 08/18/22 06:01 WBC 2.6 L RBC 3.09 L Hgb 9.6 L Hct 30.1 L MCV 97.4 MCH 31.1 MCHC 31.9 L RDW 13.4 Plt Count 160 MPV 10.7 H Immature Gran % (Auto) 0.0 Neut % (Auto) 48.3 Lymph % (Auto) 26.2 [place] % (Auto) 18.8 H Eos % (Auto) 6.3 H Baso % (Auto) 0.4 Lymph # (Auto) 0.67 L [place] # (Auto) 0.5 Eos # (Auto) 0.2 Baso # (Auto) 0.0 Abs Immat Gran (auto) 0.00 Absolute Neuts (auto) 1.2 L Absolute Nucleated RBC 0.0 Nucleated RBC % 0.0 Sodium 140 Potassium 3.7 Chloride 111 H Carbon Dioxide 26 Anion Gap 3 L BUN 17 Creatinine 0.70 Estim Creat Clear Calc 114 Estimated GFR > 60 Glucose 90 Calcium 8.1 L Phosphorus 3.1 Magnesium 2.1 Iron 69 TIBC 221 L % Saturation 31 Ferritin 91.90 Albumin 3.0 L Vitamin B12 > 1000.0 H Folate 16.3 Preliminary micro results at discharge 08/16/22 13:42 Blood Culture - Preliminary Blood 08/16/22 08:13 Blood Culture - Preliminary Blood 08/15/22 23:55 Urine Culture - Preliminary Urine Clean Catch Escherichia Coli Discharge Plan Discharge Attending physician on discharge: Travis Becerril Consulting providers: Kimberly Suarez Discharging Clinician: Travis Becerril Anticipated Di
[2022-08-18 17:30] LABS: Thyroid Stimulating Hormone Reflex 0.505 uIU/mL (0.465-4.68)
--- NOTE | 2022-08-19 09:43 | P.NEURO_ITS ---
Neurology EEG Report General Information Date of Study: 08/18/22 TEST eeg DIAGNOSIS syncope CONDITION OF RECORDING awake drowsy and sleep EEG NUMBER [id number] CLINICAL HISTORY patient reports in the last 3 years she has lost consciousness 3 times. No warning signs 1st, A little confused when coming out of it but does not last very long. EEG DESCRIPTION basic resting occipital frequency consists of low to medium voltage 8 to 9 hertz per 2nd alpha admixed with low-voltage 15 to 18 hertz per 2nd beta. Low- voltage beta activity seen diffusely admixed with waxing and waning posterior alpha rhythm during drowsiness. Posterior alpha rhythm symmetrical the block with the eyes open. Bilateral symmetrical sleep activity seen with mixture of low-voltage beta and theta activity and intermittent alpha activity. Hyperventilation not done. Photic stimulation not done. Non paroxysmal. Nonfocal. Nonlateralizing. IMPRESSION Normal record
--- NOTE | 2022-08-21 11:33 | PC.NURSE ---
EEG shows normal record. Urine cx growing E coli and Proteus Mirabilis. PT sent home on Cefdinir, which is susceptible for both organisms. Dr. Becerril aware of findings.
--- NOTE | 2022-08-24 10:20 | PC.NURSE ---
Blood cx are negative. Dr. Jone courtney.
== END 2022-08-18 18:43 | disposition home or self-care (01) | DRG 315 ==
LOC: ANHED 22:05 → ANH3MEDSUR 08-16 01:57
PROVIDERS: Admitting Provider Internal Medicine; Emergency Provider Emergency Medicine; PCP Family Medicine; Visit Provider Internal Medicine
DX: I95.9 Hypotension, unspecified (principal); N39.0 Urinary tract infection, site not specified; E86.0 Dehydration; R55 Syncope and collapse; G35 Multiple sclerosis; F10.982 Alcohol use, unspecified with alcohol-induced sleep disorder; F12.90 Cannabis use, unspecified, uncomplicated; B96.20 Unspecified Escherichia coli [E. coli] as the cause of diseases classified elsewhere; Z86.718 Personal history of other venous thrombosis and embolism; E78.5 Hyperlipidemia, unspecified; I10 Essential (primary) hypertension; I73.9 Peripheral vascular disease, unspecified; I48.91 Unspecified atrial fibrillation; Z98.84 Bariatric surgery status; Z90.710 Acquired absence of both cervix and uterus; F17.290 Nicotine dependence, other tobacco product, uncomplicated
CPT/HCPCS: 36415; 70450; 71045; 80053; 80069; 80307; 81001; 82607; 82728; 82746; 83540; 83550; 83605; 83690; 83735; 84100; 84443; 84484; 85025; 85610; 85730; 87040; 87077; 87086; 87186; 93005; 95816; 96361; 96365; 96366; 96372; 97161; 97165; 99285; A9270; G0378; J0696; J1650; J7030

== ENCOUNTER 2022-10-14 08:18 | Outpatient (CLI) | payer MEDICARE, MEDICAID, SELFPAY ==
--- NOTE | ~2022-10-14 | US_ITS ---
EXAMINATION: US carotid duplex BI DATE: 10/14/2022 09:17 INDICATION: Peripheral arterial occlusive disease presenting with syncope. TECHNIQUE: Grayscale, color Doppler, and pulsed Doppler images of the cervical carotid arteries were obtained. The degree of vessel stenosis is placed in one of the following categories: normal, <50%, 5 0-69%, >=70% but less than near-occlusion, near-occlusion, or total occlusion. Note that percent sten osis relative to normal distal artery lumen diameter is indirectly measured from velocity measurement s as described by Luis, et al. Radiology 2003; [id number]. COMPARISON: None. FINDINGS: RIGHT: The right common carotid artery (CCA) peak systolic velocity (PSV) is 75 cm/s. The right internal car otid artery (ICA) PSV is 56 cm/s. The right ICA end-diastolic velocity (EDV) is 26 cm/s. The right IC A/CCA PSV ratio is 0.8. Grayscale and color Doppler images demonstrate no evident stenosis or plaque in the ICA. The external carotid artery (ECA) PSV is 48 cm/s. There is antegrade flow in the right ve rtebral artery. LEFT: The left CCA PSV is 70 cm/s. The left ICA PSV is 80 cm/s. The left ICA EDV is 32 cm/s. The left ICA/C CA PSV ratio is 1.1. Grayscale and color Doppler images demonstrate no evident stenosis or plaque in the ICA. The ECA PSV is 59 cm/s. There is antegrade flow in the left vertebral artery. IMPRESSION: 1. No evident atherosclerotic plaque or stenosis in the right internal carotid artery. 2. No evident atherosclerotic plaque or stenosis in the left internal carotid artery. Reviewed, dictated and finalized at location A. IMPRESSION: 1. No evident atherosclerotic plaque or stenosis in the right internal carotid artery. 2. No evident atherosclerotic plaque or stenosis in the left internal carotid a rtery.
== END 2022-10-14 08:19 | disposition home or self-care (01) ==
PROVIDERS: PCP Family Medicine; Visit Provider Internal Medicine Cardiovascular Disease
DX: I48.91 Unspecified atrial fibrillation (principal); G35 Multiple sclerosis; E66.9 Obesity, unspecified; R55 Syncope and collapse; R60.0 Localized edema; I10 Essential (primary) hypertension; Z86.718 Personal history of other venous thrombosis and embolism
CPT/HCPCS: 93880

== ENCOUNTER 2022-11-10 08:33 | Outpatient (CLI) | payer MEDICARE, MEDICAID, SELFPAY ==
--- NOTE | 2022-11-10 | ECHO_ITS ---
Patient Info Name: Phyllis Ferro Age: 57 years : 1965 Gender: Female Ht: 70 in Wt: 262 lbs BSA: 2.47 m2 HR: 78 bpm BP: 129 / 105 mmHg Heart Rhythm: Sinus Rhythm Technical Quality: Fair Exam Date: 11/10/2022 9:05 AM Exam Location: [facility] Patient Status: Outpatient Admit Date: 11/10/2022 Staff Ordering Physician: Haja Hobbs MD Hospice Nurse: Karely Hubbard RDCS Attending Provider: Haja Hobbs MD Exam Type: CA echo doppler color flow Study Info Indications R55 - Syncope and collapse R60.0 - Localized edema I10 - Essential (primary) hypertension Complete two-dimensional, color flow and Doppler transthoracic echocardiogram is performed. Summary 1. Complete two-dimensional, color flow and Doppler transthoracic echocardiogram is performed. 2. Left ventricular chamber dimension is normal. 3. Left ventricular systolic function is normal, estimated at 65-70%. 4. There is mildly increased left ventricular wall thickness. 5. The left ventricular diastolic function is grade I diastolic dysfunction. 6. Right ventricular systolic function is normal. 7. There is trace mitral valve regurgitation. 8. There is mild tricuspid valve regurgitation. Left Ventricle Left ventricular chamber dimension is normal. Left ventricular systolic function is normal, estimated at 65-70%. There is mildly increased left ventricular wall thickness. The left ventricular diastolic function is grade I diastolic dysfunction. Global longitudinal strain is -19%. Right Ventricle Right ventricular chamber dimension is normal. Right ventricular systolic function is normal. Left Atria Left atrial chamber dimension is normal. Right Atria Right atrial chamber dimension is normal. Atrial Septum Intact interatrial septum visualized by color flow imaging. Aortic Valve The aortic valve is trileaflet. There is mild aortic valve sclerosis. There is no aortic valve stenosis. There is no aortic valve regurgitation. Pulmonic Valve The pulmonic valve is not well visualized. Mitral Valve There is trace mitral valve regurgitation. Tricuspid Valve There is mild tricuspid valve regurgitation. Estimated pulmonary arterial systolic pressure is 34 mmHg. Pericardium/Pleural There is no pericardial effusion. Inferior Vena Cava Normal inferior vena cava with >50% collapse upon inspiration consistent with normal right atrial pressure, 3 mmHg. Aorta The aortic root size at the sinus of Valsalva is normal. Left Ventricular Outflow Tract Name Value Normal LVOT 2D LVOT Diameter 2.0 cm LVOT Doppler LVOT Peak Gradient 5 mmHg LVOT Mean Gradient 3 mmHg LVOT VTI 24 cm LVOT VTI/AV VTI Ratio 0.9 LVOT Stroke Volume 76 ml LVOT CO 5.7 l/min LVOT CI 2.3 l/min/m2 Pulmonic Valve Name Value Normal RVOT Doppler
== END 2022-11-10 08:34 | disposition home or self-care (01) ==
PROVIDERS: PCP Family Medicine; Visit Provider Internal Medicine Cardiovascular Disease
DX: R60.0 Localized edema (principal); I10 Essential (primary) hypertension; R55 Syncope and collapse; E66.9 Obesity, unspecified; Z86.718 Personal history of other venous thrombosis and embolism; G35 Multiple sclerosis; I48.91 Unspecified atrial fibrillation
CPT/HCPCS: 93306

== ENCOUNTER 2023-07-04 01:53 | Emergency (ER) | payer MEDICARE, MEDICAID, SELFPAY ==
--- NOTE | ~2023-07-04 | CT_ITS ---
EXAMINATION: CT brain wo con DATE: 07/04/2023 02:45 INDICATION: Head injury post fall TECHNIQUE: Computed tomography (CT) of the head was performed without intravenous contrast. Sagittal and coronal reconstructions were performed. The mA was adjusted according to patient size. Iterative reconstruction technique was employed. The dose-length product was 681.00 mGy-cm. COMPARISON: head CT dated 08/15/2022 FINDINGS: No fracture. No acute intracranial hemorrhage, acute infarction or abnormal extra axial fluid collect ion. Unchanged small old lacunar infarct in the right peritrigonal white matter. Ventricles are scott l and symmetric. No mass/mass effect. The orbits, paranasal sinuses and mastoid air cells are normal. IMPRESSION: 1. No fracture or acute intracranial process. 2. Unchanged small lacunar infarct in the right peritrigonal white matter. Reviewed, dictated and finalized at location A.
--- NOTE | ~2023-07-04 | CT_ITS ---
EXAMINATION: CT cervical spine wo con DATE: 07/04/2023 02:45 INDICATION: Head injury post fall from wheelchair TECHNIQUE: Computed tomography (CT) of the cervical spine was performed without intravenous contrast. Automated exposure control and iterative reconstruction technique were employed. The dose-length pro duct was 473.00 mGy-cm. COMPARISON: None FINDINGS: Normal bone alignment of the cervical spine. Minimal upper thoracic levocurvature. Vertebral body hei ghts are normal. No fracture. Moderate disc height loss at C4-C5 and C5-C6 and mild disc height loss at C6-C7. Likely benign 8 mm left thyroid nodule. Mild emphysema the apices of the lungs. Cervical so ft tissues are otherwise unremarkable. The following disc levels are specifically discussed: C2-C3: The disc does not extend beyond the endplate margin. There is mild left uncovertebral joint os teoarthritis. There is mild left and moderate right facet joint osteoarthritis. There is mild right n eural foraminal stenosis. There is no central canal stenosis. C3-C4: Disc is bulging. There is mild bilateral uncovertebral joint osteoarthritis. There is mild javier ateral facet joint osteoarthritis. There is mild right neural foraminal stenosis. There is mild centr al canal stenosis. C4-C5: Posterior disc osteophyte complex. There is severe left and mild right uncovertebral joint ost eoarthritis. There is mild bilateral facet joint osteoarthritis. There is mild right and moderate lef t neural foraminal stenosis. There is mild central canal stenosis. C5-C6: Posterior disc osteophyte complex. There is mild right and moderate left uncovertebral joint o steoarthritis. There is mild left facet joint osteoarthritis. There is mild right and moderate left n eural foraminal stenosis. There is mild central canal stenosis. C6-C7: Disc is bulging. There is mild right and minimal left uncovertebral joint osteoarthritis. Ther e is minimal right facet joint osteoarthritis. There is no neural foraminal stenosis. There is mild c entral canal stenosis. C7-T1: The disc does not extend beyond the endplate margin. There is no uncovertebral joint osteoarth ritis. There is mild bilateral facet joint osteoarthritis. There is no neural foraminal stenosis. The re is no central canal stenosis. IMPRESSION: 1. Mild to moderate cervical spondylosis. No acute osseous abnormality. Reviewed, dictated and finalized at location A.
[2023-07-04 01:51] VITALS: BP 112/99; PULSE 75; RESP 12; TEMP 36.6; O2SAT 100
[2023-07-04 02:01] VITALS: PULSE 79; RESP 19
[2023-07-04] MEDS: ONDANSETRON HCL ODT 4 MG TABLET PO (02:27)
[2023-07-04] MEDS: ACETAMINOPHEN 500 MG TABLET 1000 MG PO (02:27)
--- NOTE | 2023-07-04 02:34 | ED.FALL ---
HPI - Fall General Chief Complaint: Fall <DMITRI Ty Last Filed: 07/04/23 02:44> Stated Complaint: HEAD PAIN S/P FALL OFF OF MOTORIZED W/C. <Ria Branham PA-C - Last Filed: 07/04/23 02:44> Time Seen by Provider: 07/04/23 02:06 <DMITRI Ty Last Filed: 07/04/23 02:44> Source: patient <DMITRI Ty Last Filed: 07/04/23 02:44> Mode of arrival: EMS <DMITRI Ty Last Filed: 07/04/23 02:44> Limitations: no limitations <DMITRI Ty Last Filed: 07/04/23 02:44> History of Present Illness HPI Narrative: Patient is a 57-year-old female, with PMH of MS, who presents the ED via EMS with report of a fall. Patient reports she was sitting in her electric wheelchair tonight when she accidentally fell forward and her seatbelt came lose, causing her to fall forward hitting her head on the ground. EMS was then contacted. Patient denied LOC. She does complain of a frontal headache, mild dizziness, mild nausea, photophobia. Denies neck or back pain. Denies any other injuries. Denies vision changes. Denies focal weakness or numbness. Patient is on Xarelto due to history of atrial fibrillation. <DMITRI Ty Last Filed: 07/04/23 02:44> Related Data Home Medications: Home Medications Medication Instructions Recorded Confirmed atorvastatin 10 mg tablet 10 mg PO DAILY 08/16/22 08/16/22 cetirizine 10 mg tablet 10 mg PO DAILY 08/16/22 08/16/22 cyclobenzaprine 10 mg tablet 10 mg PO TID 08/16/22 08/16/22 dalfampridine 10 mg 10 mg PO BID 08/16/22 08/16/22 tablet,extended release,12 hr docusate sodium 100 mg capsule 100 mg PO DAILY 08/16/22 08/16/22 doxepin 10 mg capsule 10 mg PO DAILY 08/16/22 08/16/22 ergocalciferol (vitamin D2) 1,250 1 mcg PO WEEKLY 08/16/22 08/16/22 mcg (50,000 unit) capsule fingolimod 0.5 mg capsule (Gilenya) 0.5 mg PO DAILY 08/16/22 08/16/22 fluticasone propionate 50 1 spray intranasal DAILY 08/16/22 08/16/22 mcg/actuation nasal spray,suspension gabapentin 800 mg tablet 800 mg PO TID 08/16/22 08/16/22 oxybutynin chloride 15 mg 15 mg PO DAILY 08/16/22 08/16/22 tablet,extended release 24 hr trazodone 50 mg tablet 50 mg PO HS 08/16/22 08/16/22 <Ria Branham PA-C - Last Filed: 07/04/23 02:44> Allergies/Adverse Reactions: Allergies Allergy/AdvReac Type Severity Reaction Status Date / Time No Known Allergies Allergy Verified 09/02/21 11:26 <Ria Branham PA-C - Last Filed: 07/04/23 02:44> Review of Systems Review of Systems: CONSTITUTIONAL: Denies fever, chills, or sweats. ENT: Reports photophobia. Denies vision changes. GASTROINTESTINAL: See HPI. MUSCULOSKELETAL: Denies back pain, neck pain, extremity pain. NEUROLOGIC: See HPI. <Ria Branham PA-C - Last Filed: 07/04/23 02:44> All systems reviewed & are unremarkable except as noted in HPI and below <Ria Branham PA-C - Last Filed: 07/04/23 02:44> [facility] Past Medical History Medical History: Medical History DVT (deep venous thrombosis) November 2020? History of atrial fibrillation Hyperlipidemia Hypertension Multiple sclerosis PAD (peripheral artery disease) BRANDY June 2022 shows diminished Rt moderate PAD below the ankle and diminished left BRANDY/TBI mild PAD <Ria Branham PA-C - Last Filed: 07/04/23 02:44> Surgical History Surgical History: Surgical History H/O gastric bypass September 2020 complicated by emergent hernia repair a few days later H/O inguinal hernia repair September 2020 Hx of hysterectomy <Ria Branham PA-C - Last Filed: 07/04/23 02:44> Family History Family History: Family History Mother Heart disease Sibling Heart diseas
[2023-07-04 03:18] VITALS: PULSE 74; RESP 12; O2SAT 100
[2023-07-04 03:30] VITALS: PULSE 75; RESP 13; O2SAT 100
[2023-07-04 04:32] VITALS: PULSE 70; RESP 13; O2SAT 100
== END 2023-07-04 04:44 | disposition home or self-care (01) ==
PROVIDERS: Emergency Provider Emergency Medicine; PCP Family Medicine
DX: S09.90XA Unspecified injury of head, initial encounter (principal); G35 Multiple sclerosis; I48.91 Unspecified atrial fibrillation; I10 Essential (primary) hypertension; I73.9 Peripheral vascular disease, unspecified; E78.5 Hyperlipidemia, unspecified; F17.290 Nicotine dependence, other tobacco product, uncomplicated; Z98.84 Bariatric surgery status; Z86.718 Personal history of other venous thrombosis and embolism; Z90.710 Acquired absence of both cervix and uterus; Z79.01 Long term (current) use of anticoagulants; W05.0XXA Fall from non-moving wheelchair, initial encounter
CPT/HCPCS: 70450; 72125; 99284; A9270

== ENCOUNTER 2023-07-05 10:28 | Emergency (ER) | payer MEDICARE, MEDICAID, SELFPAY ==
--- NOTE | ~2023-07-05 | CT_ITS ---
EXAMINATION: CT cervical spine wo con DATE: 07/05/2023 13:48 INDICATION: Fall. Head and neck injury. TECHNIQUE: Computed tomography (CT) of the cervical spine was performed without intravenous contrast. Automated exposure control and iterative reconstruction technique were employed. Exam dose: 404.82 mGy-cm total exam DLP. COMPARISON: 07/04/2023 CT cervical spine FINDINGS: C1 and C2 are normally aligned and the odontoid process is intact. Alignment appears modera te to moderately severe degenerative disc disease at C4-5 and C5-6 with associated minimal retrolisth esis at these 2 levels. There is prominent uncovertebral joint spurring bilaterally at C4-5 and C5-6 No fracture or dislocation or locked facet or prevertebral soft tissue swelling.. IMPRESSION: Moderate cervical spondylosis; no fracture or dislocation or locked facet Reviewed, dictated and finalized at Location [facility]. Reviewed, dictated and finalized at location B. IMPRESSION: Moderate cervical spondylosis; no fracture or dislocation or courtney d facet
--- NOTE | ~2023-07-05 | CT_ITS ---
EXAMINATION: CT brain wo con DATE: 07/05/2023 13:48 INDICATION: Fall. Head injury. TECHNIQUE: Computed tomography (CT) of the head was performed without intravenous contrast. The mA wa s adjusted according to patient size. Iterative reconstruction technique was employed. Exam dose: 68 1.00 mGy-cm total exam DLP. COMPARISON: 07/04/2023 CT brain FINDINGS: No significant change of previously reported small right peritrigonal white matter infarct. Bilateral carotid siphon internal carotid artery calcifications. There is nonspecific diminished atte nuation of the cerebral white matter, likely due to chronic small vessel ischemic changes. No intracranial mass lesion or hemorrhage, midline shift or mass effect or subdural or epidural hemat regan is detected. Normal ventricular size. No fracture or bone destruction of the cranial vault. The paranasal sinuses and mastoid air cells are normally developed and aerated. No subdural or epidural hematoma. 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 Reviewed, dictated and finalized at location B. IMPRESSION: Stable chronic right peritrigonal white matter infarcts; no acute intracranial finding or significant change since 07/04/2023
[2023-07-05 10:31] VITALS: BP 155/82; PULSE 67; RESP 19; TEMP 36.7; O2SAT 100
--- NOTE | 2023-07-05 13:00 | ED.GENADULT ---
HPI - General Adult General Chief complaint: Headache <Melanie Hightower, NEURO UROLOGIST - Last Filed: 07/05/23 13:04> Stated complaint: head and neck pain <Melanie Hightower, NEURO UROLOGIST - Last Filed: 07/05/23 13:04> Time Seen by Provider: 07/05/23 13:01 <Melanie Gaston August, NEURO UROLOGIST - Last Filed: 07/05/23 13:04> Focused HPI: Phyllis Ferro is a 57 y/o female who presents with reports of being on Xarelto for about 4 months and yesterday she fell forward out of her electric wheelchair striking her head. She states she did come in here for this yesterday but she came back because her headache is getting worse some dizziness and having neck pain. denies LOC GENERAL: Well-appearing, well-nourished, and in no acute distress. HEAD: Normocephalic, atraumatic. CHEST: Clear to auscultation. ?No respiratory distress. HEART: Regular rate and rhythm.? NEURO: ?Alert and oriented x3. Patient screened in triage and initial orders placed.? ?Additional care and disposition to be based upon?diagnostic testing and treatment. <Melanie Gaston August, NEURO UROLOGIST - Last Filed: 07/05/23 13:04> History of Present Illness HPI narrative: 57-year-old female presenting with headache and neck pain after a fall. Patient states that she fell from her electric wheelchair 2 days ago and struck her head. She was seen here after this an imaging was negative. Unfortunately, her headache continued and she developed neck pain as well so she came back for evaluation. Denies new numbness or weakness. No further trauma or injuries. <Daisha Barraza MD - Last Filed: 07/09/23 21:09> Related Data Home medications: Home Medications Medication Instructions Recorded Confirmed atorvastatin 10 mg tablet 10 mg PO DAILY 08/16/22 08/16/22 cetirizine 10 mg tablet 10 mg PO DAILY 08/16/22 08/16/22 cyclobenzaprine 10 mg tablet 10 mg PO TID 08/16/22 08/16/22 dalfampridine 10 mg 10 mg PO BID 08/16/22 08/16/22 tablet,extended release,12 hr docusate sodium 100 mg capsule 100 mg PO DAILY 08/16/22 08/16/22 doxepin 10 mg capsule 10 mg PO DAILY 08/16/22 08/16/22 ergocalciferol (vitamin D2) 1,250 1 mcg PO WEEKLY 08/16/22 08/16/22 mcg (50,000 unit) capsule fingolimod 0.5 mg capsule (Gilenya) 0.5 mg PO DAILY 08/16/22 08/16/22 fluticasone propionate 50 1 spray intranasal DAILY 08/16/22 08/16/22 mcg/actuation nasal spray,suspension gabapentin 800 mg tablet 800 mg PO TID 08/16/22 08/16/22 oxybutynin chloride 15 mg 15 mg PO DAILY 08/16/22 08/16/22 tablet,extended release 24 hr trazodone 50 mg tablet 50 mg PO HS 08/16/22 08/16/22 <Melanie Gaston August,N - Last Filed: 07/05/23 13:04> Allergies/adverse reactions: Allergies Allergy/AdvReac Type Severity Reaction Status Date / Time No Known Allergies Allergy Verified 07/05/23 14:48 <Melanie Gaston August,N - Last Filed: 07/05/23 13:04> Review of Systems Review of Systems: All systems reviewed & are unremarkable except as noted in HPI and below <Daisha Barraza MD - Last Filed: 07/09/23 21:09> [facility] Past Medical History Medical History: Medical History DVT (deep venous thrombosis) November 2020? History of atrial fibrillation Hyperlipidemia Hypertension Multiple sclerosis PAD (peripheral artery disease) BRANDY June 2022 shows diminished Rt moderate PAD below the ankle and diminished left BRANDY/TBI mild PAD <Melanie Gaston August,N - Last Filed: 07/05/23 13:04> Surgical History Surgical History: Surgical History H/O gastric bypass September 2020 complicated by emergent hernia repair a few days later H/O inguinal hernia repair September 2020 Hx of hysterectomy <Melanie Gaston August,N - Last Filed: 07/05/23 13:04> Family History Family History: Family History Mother Heart disease Sibling Heart disease <Melanie Hightower, NEURO UROLOGIST - Last Filed: 07/05/23
[2023-07-05 14:45] VITALS: BP 158/81; PULSE 64; RESP 16; O2SAT 100
--- NOTE | 2023-07-05 14:46 | PC.NURSE ---
This RN attempted to help pt get from wheelchair to bed. Pt tried to rock herself and stand up. Pt had home gait belt on and this RN attempted to use that to help her. It was an unsuccessful attempt, pt unable to bear weight and stand up. Pt remains in wheelchair. Pt states at home she is able to get around using her walker with wheels.
--- NOTE | 2023-07-05 15:17 | PC.NURSE ---
This RN spoke with pt sister Janie Feng regarding pt status where she voiced her concern about the pt and her increased forgetfulness. Janie also endorsed that the pt usually walks with her walker with wheels and can bear weight.
[2023-07-05] MEDS: ACETAMINOPHEN 500 MG TABLET 1000 MG PO (15:43)
[2023-07-05 16:37] VITALS: BP 134/70; PULSE 77; RESP 15; TEMP 36.4; O2SAT 100
== END 2023-07-05 16:39 | disposition home or self-care (01) ==
PROVIDERS: Emergency Provider Emergency Medicine; PCP Family Medicine
DX: S16.1XXA Strain of muscle, fascia and tendon at neck level, initial encounter (principal); R51.9 Headache, unspecified; I48.91 Unspecified atrial fibrillation; I10 Essential (primary) hypertension; I73.9 Peripheral vascular disease, unspecified; G35 Multiple sclerosis; E78.5 Hyperlipidemia, unspecified; Z86.718 Personal history of other venous thrombosis and embolism; Z98.84 Bariatric surgery status; Z90.710 Acquired absence of both cervix and uterus; Z79.01 Long term (current) use of anticoagulants; M47.812 Spondylosis without myelopathy or radiculopathy, cervical region; W05.0XXA Fall from non-moving wheelchair, initial encounter
CPT/HCPCS: 70450; 72125; 99284; A9270